=== PATIENT | female | born 1990 | race Caucasian/White ===

== ENCOUNTER 2019-11-10 07:27 | Inpatient (IN) | payer OTHER, SELFPAY ==
[2019-11-10] VITALS (41 sets, daily range): BP systolic 94–126; BP diastolic 53–80; PULSE 81–113; TEMP 35.7–37.1; O2SAT 98–100; BMI 35.4
--- NOTE | 2019-11-10 07:27 | LDADM ---
This patient, Yokasta Stringer, was admitted to Labor/Delivery/Recovery 109 on 11/10/19 at 07:27. Plans for labor, pain management and were discussed with patient. Patient/family oriented to hospital policies and general routines including ID bracelet, bed and alarms, visiting hours, pain management, procedures, bathroom and other care routines, personal items, smoking policy, room service/diet and guest tray routines, infant security routines, and visiting hours. Patient/Family are encouraged to report perceived risks to care and to ask questions if they do not understand what they are told or what they should do. See OBIX for further documentation.
[2019-11-10] MEDS: TERBUTALINE SULFATE 1 MG/ML VIAL 0.25 MG SUB-Q (08:36)
--- NOTE | 2019-11-10 08:57 | WPDOBADMIT ---
Obstetrics - Admit Note Admission Note: record reviewed. Additions to the history and/or subsequent changes in the physical findings follow. 29 y/o at 39 weeks with footling breech presentation, here for ECV. No contractions. No leakage of fluid. Rh pos. AVSS NST reactive TOCO: no contractions ABD soft, nontender, gravid, breech. Cervix closed, thick Bedside ultrasound: IUP in footling breech presentation with back to maternal left. Fundal, left-sided placenta. Procedure: After informed consent was obtained, she received terbutaline 0.25mg sc x 1. Under ultrasound guidance, the breech was elevated and the fetus rotated counterclockwise (forward somersault), effecting ECV. Cephalic presentation resulted. FHR normal throughout. A: Breech presenatation resolved. P: She is considering whether to pursue induction of labor versus expectant management. Reviewed her options in detail.
[2019-11-10 09:33] LABS: Basophils Percent Auto 0.2 % (0.2-1.2); Eosinophils Absolute Auto 0.1 K/mm3 (0-0.3); Eosinophils Percent Auto 0.9 % (0-4.4); Hematocrit 32.4 % (37.0-47.0); Hemoglobin 10.9 g/dL (12.0-15.0); Immature Granulocyte Absolute 0.05 K/mm3 (0.00-0.031); Immature Granulocyte Percent A 0.6 % (0-0.5); Lymphocytes Absolute Auto 1.62 K/mm3 (0.9-3.2); Mean Corpuscular HGB Conc 33.6 g/dl (32-36); Mean Corpuscular Hemoglobin 28.8 pg (26-34); Mean Corpuscular Volume 85.7 fl (80-100); Mean Platelet Volume 10.4 fl (7.4-10.4); Monocytes Absolute Auto 0.7 K/mm3 (0.1-0.6); Monocytes Percent Auto 8.1 % (2.6-8.5); Neutrophils Absolute Auto 6.5 K/mm3 (1.3-6.7); Neutrophils Percent Auto 72.2 % (45.5-73.1); Platelet Count Result 271 k/mm3 (150-375); Red Blood Count 3.78 M/mm3 (4.2-5.4); Red Cell Distribution Width 13.5 % (11.5-14.5)
[2019-11-10] MEDS: DINOPROSTONE 10 MG VAG INSERT VAGINAL (10:58)
--- NOTE | 2019-11-10 11:52 | PM.OBPNLAB ---
Pain Control Date/time seen: 11/10/19 11:52 Comments: Patient decided on induction of labor. Cervidil placed. Pelvic Exam Dilation (cm): 1 Effacement (%): 0 station: -3 Comments: per RN exam Contractions Monitor mode: External Status status: Category l Assessment and Plan Comments: TOCO: rare contractions A: IUP at 39 weeks, s/p ECV. P: She requests induction of labor. Reviewed risks, benefits and alternatives in detail. Cervidil has been placed.
--- NOTE | 2019-11-10 13:57 | P.PNAN_ITS ---
Anes - Eval Pre Procedure Procedure: Labor epidural Date/Time: 11/10/19 13:57 Surgeon: Kartik Morse M.D. Preop Diagnosis: pain during labor Pre Op Diagnosis: Labor Patient Data Age: 29 Gender: F Height: 1.63 m Weight: 93.5 kg Last Vital Signs Pulse 101 H 11/10/19 13:16 BP 123/64 11/10/19 13:16 Pulse Ox 100 11/10/19 10:43 Allergies Allergy/AdvReac Type Severity Reaction Status Date / Time No Known Allergies Allergy Verified 10/18/19 12:48 Home Medications Medication Instructions Recorded Confirmed Type vit no.[id number] 1 tablet PO DAILY 10/18/19 11/10/19 History [ Vitamin] Laboratory Tests 11/10/19 11/10/19 11/10/19 09:25 09:25 09:25 WBC 9.0 K/mm3 K/mm3 (4.5-10.0) RBC 3.78 M/mm3 L M/mm3 (4.2-5.4) Hgb 10.9 g/dL L g/dL (12.0-15.0) Hct 32.4 % L % (37.0-47.0) MCV 85.7 fl fl (80-100) MCH 28.8 pg pg (26-34) MCHC 33.6 g/dl g/dl (32-36) RDW 13.5 % % (11.5-14.5) Plt Count 271 k/mm3 k/mm3 (150-375) MPV 10.4 fl fl (7.4-10.4) Immature Gran % (Auto) 0.6 % H % (0-0.5) Neut % (Auto) 72.2 % % (45.5-73.1) Lymph % (Auto) 18.0 % L % (18.3-44.2) Lipscomb % (Auto) 8.1 % % (2.6-8.5) Eos % (Auto) 0.9 % % (0-4.4) Baso % (Auto) 0.2 % % (0.2-1.2) Lymph # (Auto) 1.62 K/mm3 K/mm3 (0.9-3.2) Lipscomb # (Auto) 0.7 K/mm3 H K/mm3 (0.1-0.6) Eos # (Auto) 0.1 K/mm3 K/mm3 (0-0.3) Baso # (Auto) 0.0 K/mm3 K/mm3 (0.0-0.1) Abs Immat Gran (auto) 0.05 K/mm3 H K/mm3 (0.00-0.031) Absolute Neuts (auto) 6.5 K/mm3 K/mm3 (1.3-6.7) Absolute Nucleated RBC 0.0 K/mm3 K/mm3 (0.0-0.012) Nucleated RBC % 0.0 % % (0.0-0.2) RPR Pending Blood Type O Positive Antibody Screen Negative Patient hx anesthesia problems: none Family hx anesthesia problems: none [facility] Family History Family History (Updated 10/18/19 @ 12:39 by Naty Joiner, RN) Grandparent Colon cancer Diabetes mellitus Aortic stenosis Other Neurofibromatosis Social History Social History Smoking status: Never smoker Second hand tobacco smoke exposure: No Substance use: never Gender identity (if verbalized by the patient): Female Spiritual care concerns: No Exam Day of Procedure 11/10/19 13:57
[2019-11-11] VITALS (241 sets, daily range): BP systolic 69–125; BP diastolic 36–111; PULSE 25–208; TEMP 36.1–37.9; O2SAT 82–100
[2019-11-11] MEDS: LACTATED RINGERS 1,000 ML 125 ML IV CONT ×6 (00:02→23:44)
[2019-11-11] MEDS: OXYTOCIN 30 UNITS/NS 500 ML 30 UNITS/500 ML BAG 6 UNITS IV CONT (00:03)
--- NOTE | 2019-11-11 08:40 | PM.OBPNLAB ---
Pain Control Date/time seen: 11/11/19 08:40 Comments: Feeling more contractions. Pelvic Exam Dilation (cm): 3 Effacement (%): 50 station: -2 Comments: AROM with clear fluid. Contractions Monitor mode: External Contraction pattern: Irregular Status status: Category l Assessment and Plan Comments: A: IUP at 39 1/7 weeks. P: Continue labor.
[2019-11-11 09:37] LABS: Rapid Plasma Reagin Non-Reactive (NonReactive)
--- NOTE | 2019-11-11 12:00 | PM.OBPNLAB ---
Pain Control Date/time seen: 11/11/19 12:00 Comments: Now comfortable with epidural. Pelvic Exam Dilation (cm): 4 Effacement (%): 80 station: -2 Contractions Monitor mode: External Contraction pattern: Irregular Status status: Category l Assessment and Plan Comments: Continue labor
[2019-11-11] MEDS: PHENYLEPHRINE 1,000 MCG/10 ML SYRINGE 100 MCG IV PUSH (14:05)
[2019-11-11] MEDS: ONDANSETRON INJ 4 MG/2 ML VIAL IV PUSH (16:29)
--- NOTE | 2019-11-11 16:49 | PM.OBPNLAB ---
Pain Control Date/time seen: 11/11/19 16:49 Pelvic Exam Dilation (cm): 5 Effacement (%): 80 station: -2 Contractions Monitor mode: External Contraction pattern: Irregular Status status: Category l Assessment and Plan Comments: Continue labor.
[2019-11-11] MEDS: AMPICILLIN 2 GM/NS 100 ML 2 GM/100 ML BAG IVPB (22:43)
[2019-11-12] VITALS (149 sets, daily range): BP systolic 66–212; BP diastolic 31–123; PULSE 31–250; RESP 14–19; TEMP 36.9–37.5; O2SAT 76–100
--- NOTE | 2019-11-12 02:01 | PM.OBPNLAB ---
Pain Control Date/time seen: 11/12/19 02:01 Comments: Pushing well. Pelvic Exam Dilation (cm): 10 Effacement (%): 100 station: +1 Contractions Monitor mode: External Contraction frequency: 4 Contraction pattern: Regular Status status: Category l Assessment and Plan Comments: Continue pushing
--- NOTE | 2019-11-12 04:19 | PM.IMHP ---
H&P: HPI History of Present Illness Date/Time: 11/12/19 04:19 Chief complaint: Labor Narrative: 29 y/o at 39 2/7 weeks here for induction of labor after a successful ECV. Had Cervidil, then oxytocin. Has pushed for a little over 3 hours. Attempted VAVD for poor maternal pushing effort after 2.5 hours of pushing. Kiwi vacuum cup applied to the vertex. Using the Dreifingergriff, the Kiwi was applied to the vertex and the head was gently flexed. Over 5 contractions, and with 1 pop-off, there was initially some descent of the head from +1 to the +2/5 station, but then no further descent was able to be effected. Therefore, I offered her a primary . Reviewed risks, benefits, alternatives in detail. She understands and elects to proceed. Review of Systems Review of Systems: All systems reviewed & are unremarkable except as noted in HPI and below PMFSH Past Medical History Medical History (Updated 11/12/19 @ 04:24 by Kartik Morse MD) ANTONIA I (vulvar intraepithelial neoplasia I) Family History Family History Grandparent Colon cancer Diabetes mellitus Aortic stenosis Other Neurofibromatosis Social History Social History Smoking status: Never smoker Second hand tobacco smoke exposure: No Substance use: never Gender identity (if verbalized by the patient): Female Spiritual care concerns: No Meds Home Medications and Allergies Home Medications Medication Instructions Recorded Confirmed Type vit no.[id number] 1 tablet PO DAILY 10/18/19 11/10/19 History [ Vitamin] Allergies Allergy/AdvReac Type Severity Reaction Status Date / Time No Known Allergies Allergy Verified 10/18/19 12:48 Vital Signs Vital Signs - 24 hr 11/11/19 04:31 11/11/19 05:00 11/11/19 05:31 Temperature Pulse Rate 82 86 83 Blood Pressure 105/64 113/73 105/62 Pulse Oximetry 11/11/19 06:02 11/11/19 06:03 11/11/19 06:32 Temperature Pulse Rate 86 95 95 Blood Pressure 78/53 L 109/55 L 106/69 Pulse Oximetry 11/11/19 06:43 11/11/19 07:00 11/11/19 07:36 Temperature 36.6 C Pulse Rate 78 91 Blood Pressure 111/69 102/63 Pulse Oximetry 11/11/19 08:14 11/11/19 08:38 11/11/19 08:41 Temperature 36.7 C Pulse Rate 95 103 H Blood Pressure 114/75 122/56 L Pulse Oximetry 11/11/19 09:01 11/11/19 09:02 11/11/19 09:32 Temperature 36.6 C Pulse Rate 185 H 108 H Blood Pressure 125/111 H 122/79 Pulse Oximetry 11/11/19 09:34 11/11/19 10:05 11/11/19 10:53 Temperature Pulse Rate 110 H 113 H Blood Pressure 118/75 121/69 Pulse Oximetry 84 L 11/11/19 10:55 11/11/19 10:58 11/11/19 11:00 Temperature Pulse Rate 105 H 103 H Blood Pressure 102/62 104/73 Pulse Oximetry 100 11/11/19 11:02 11/11/19 11:03 11/11/19 11:05 Temperature Pulse Rate 97 112 H 135 H Blood Pressure 108/85 107/84 113/81 Pulse Oximetry 11/11/19 11:06 11/11/19 11:08 11/11/19 11:09 Temperature Pulse Rate 96 94 Blood Pressure 124/76 116/60 Pulse Oximetry 11/11/19 11:10 11/11/19 11:13 11/11/19 11:15 Temperature Pulse Rate 93 92 92 Blood Pressure 119/75 111/71 121/70 Pulse Oximetry 11/11/19 11:16 11/11/19 11:18 11/11/19 11:19 Temperature Pulse Rate 88 89 Blood Pressure 118/68 111/70 Pulse Oximetry 11/11/19 11:20 11/11/19 11:22 11/11/19 11:23 Temperature Pulse Rate 85 94 Blood Pressure 112/73 119/77 Pulse Oximetry 11/11/19 11:28 11/11/19 11:29 11/11/19 11:30 Temperature Pulse Rate 86 78 85 Blood Pressure 107/61 102/66 104/68 Pulse Oximetry 100 11/11/19 11:31 11/11/19 11:33 11/11/19 11:35 Temperature 36.6 C Pulse Rate 79 79 Blood Pressure 111/69 117/68 Pulse Oximetry 100 11/11/19 11:37 11/11/19 11:38 11/11/19 11:39 Te
--- NOTE | 2019-11-12 04:30 | WPDANESEFPP ---
Anes - Eval Final PreProcedure Day of Procedure 11/12/19 04:30 Patient weight: overweight Neurological: alert and oriented ASA classification: II Emergent: no Anesthetic plan: proceed Anesthesia type and monitoring: regional epidural and standard monitoring Other findings: use existing epid for c/s Informed Consent: The patient's anesthetic plan and its attendant risks and benefits were discussed with the patient/family/POA. Questions were solicited and answers provided to the satisfaction of the patient/family/POA.
--- NOTE | 2019-11-12 05:34 | PM.OBPRVD ---
OB - Delivery Note Procedure Procedure: Procedures Operation Date: 11/10/19 10:30 <No data on this case meets the specified criteria> Operation Date: 11/12/19 04:45 <No data on this case meets the specified criteria> External cephalic version Induction of labor Attempted vacuum assisted vaginal delivery Primary low transverse delivery Delivery monitor: external FHT, external uterine and internal uterine Route of delivery: Estimated blood loss (mL): 895 Anesthesia type: Epidural Disposition: PACU Complications: None Narrative: The patient was taken to the operating room where she was prepared and draped in the usual sterile fashion in dorsal supine position with a leftward tilt. She received cefazolin preoperatively. Spinal anesthesia was found to be adequate. A Pfannenstiel skin incision was made and carried through to the underlying layer of the fascia. The fascia was incised in the midline and the incision was extended laterally. The fascia was dissected free of the underlying rectus muscles. The rectus muscles were in the midline. The peritoneum was identified, tented up and entered sharply. The peritoneal incision was extended superiorly and inferiorly with good visualization of the bladder. The bladder blade was placed. The vesicouterine peritoneum was identified, tented up and entered sharply. The incision was extended laterally and the bladder flap was developed. The bladder blade was replaced. The uterus was then incised sharply in a transverse fashion along the lower uterine segment. The incision was extended laterally. The infant's head was delivered atraumatically to the sterile field, followed by the body. The nose and mouth were bulb suctioned. After a delay, the cord was clamped and cut. The infant was handed off the field. Cord blood was collected. The placenta was removed manually and was passed off the field. The uterus was exteriorized and cleared of all clots and debris. The uterine incision was reapproximated using 0 Monocryl in a running, locked fashion. A second imbricating layer of the same suture was placed. Excellent hemostasis resulted as did excellent reapproximation of the normal anatomy. The uterus was returned the abdomen. The pelvis was irrigated copiously with warmed normal saline. Rigorous hemostasis was assured. The fascial layer was reapproximated using 0 Vicryl in a running fashion. The skin was closed with a running, subcuticular stitch of 4 0 Vicryl. Dermaflex was applied externally. Sponge, lap, needle and instrument counts were correct. The patient was taken to the recovery room in stable condition. The went to the nursery in stable condition. I was present and scrubbed the entire procedure. Baby Date of : 11/12/19 Time of : 04:58 Weeks of gestation at delivery: 39 Infant gender: Male Weight (pounds): 7 Weight (ounces): 4 presentation: vertex Placenta delivery description: Manual Removal and Normal Configuration cord vessel description: 3 Vessels score one minute: 7 score five minutes: 9
--- NOTE | 2019-11-12 05:37 | PM.OBDSVD ---
DS: Admitting Diagnosis Admitting Diagnosis Admitting Diagnosis: Breech presentation DS: Discharge Diagnosis Discharge Diagnosis (1) delivery delivered: Code(s): O82 - Encounter for delivery without indication Status: Acute (2) Arrest of descent, delivered, current hospitalization: Code(s): O62.1 - Secondary uterine inertia Status: Acute OB - DS: Summary OB Procedures : NST, Ultrasound and External version OB Procedures Intrapartum: OB Procedures: : None Peripartum Data Procedures: Procedures Operation Date: 11/10/19 10:30 <No data on this case meets the specified criteria> Operation Date: 11/12/19 04:45 <No data on this case meets the specified criteria> External cephalic version Induction of labor Attempted vacuum assisted vaginal delivery Primary low transverse delivery DS: Data Data Completed and Pending Labs on day of discharge: Labs from last 24 hours 11/10/19 09:25 RPR Non-reactive Discharge Plan Discharge Attending physician on discharge: Kartik Morse Discharging Clinician: Kartik Morse Patient Disposition: Home, Self-Care Activity: may shower, may drive after 2 weeks and pelvic rest Diet: regular Wound Care Instructions: incision open to air Discharge Instructions: Call or return if temperature above 100.4? F, increased abdominal pain, increased vaginal bleeding or any new problems. Education: Mom and Baby Guide and Preeclampsia Handout Given to: Mother Follow-Up: Call your delivering provider's office for an appointment to be seen in: 4 Weeks Mom and baby should come to the [facility] for the follow-up appointment. Appointment Date/Time: November 16, 2019 at 11:00 am What to expect at your follow-up visit: Physical Assessment Call [phone] if you are unable to keep your appointment time. BREAST CARE: * Wear a snug supportive bra. * For engorgement discomfort: Breast Feeding: * Apply warm moist washcloths * Express milk as needed to relieve engorgement * Wear loose clothing * For sore nipples: * Identify correct latch-on * Apply warm moist washcloths before and after nursing * Air dry nipples after nursing * May apply Lansinoh cream to nipples ABDOMINAL INCISION: (if applicable) * Allow incision to air dry * Do NOT use lotions for powders on your incision * When showering, allow soap and water to run over the incision, but do not wash incision EPISIOTOMY/PERINEAL CARE: * Until bleeding stops, use your rey bottle after urinating * Change your pad frequently throughout the day * No tub baths until seen by your physician - You may shower ACTIVITY: * Rest as much as possible. * Do not exercise or lift anything heavier than your baby (such as laundry or other children.) * Avoid stairs or driving as much as possible. * Do not put anything into the vagina. No douching, tampons, or sexual activity until seen by physician. NOTIFY PHYSICIAN IF YOU HAVE ANY QUESTIONS OR IF ANY OF THE FOLLOWING SYMPTOMS OCCUR: * If your incision becomes red, swollen, or more painful than what you have experienced in the hospital. * If your vaginal bleeding becomes foul smelling. * If your vaginal bleeding becomes more heavy than a period or if your bleeding changes from pink to bright red. However, you may pass an occasional walnut-sized clot once or twice for the first week . * If you experience a sharp, shooting pain in you calves. * If you discover a hard, reddened area on your breast or if you experience flu-like symptoms. DIET: * Eat regular, well-balanced meals. * Drink plenty of fluids daily. If , drink to thirst. Stand Alone Forms: General Discharge Information Follow-up/Referrals: Kartik Morse MD [Physician] - 4 Weeks (4
[2019-11-12] MEDS: OXYTOCIN 30 UNITS/NS 500 ML 30 UNITS/500 ML BAG 125 UNITS IV CONT (06:05)
[2019-11-12] MEDS: LACTATED RINGERS 1,000 ML 125 ML IV CONT (06:05)
[2019-11-12] MEDS: KETOROLAC 30 MG/ML VIAL (*BKC) IV PUSH ×2 (08:47→15:55)
[2019-11-12] MEDS: DEXTROSE 5%/0.45% SOD CHL 1,000 ML 125 ML IV CONT (10:13)
--- NOTE | 2019-11-12 15:15 | PC.NURSE ---
Consulted with patient, mother reports infant has eagerly latched for the first several feedings. Mother states she has requested assist with latching each feeding. Advised mother she may attempt on her own or call for assist as she wishes. Reviewed feeding cues, frequencies, duration of feedings, feeding elimination flow sheet, and signs of adequate intake. Demonstrated stimulation techniques to wake for feeding. Assisted with to breast. Reviewed positioning/alignment in cross cradle, holding breast in U hold and guided asymmetrical latch on. Reviewed rational for each. was able to latch correctly. nursed eagerly, with steady draws and frequent swallowing noted. Reviewed signs of a correct latch, effective nursing and suck swallow ratio. was able to maintain latch without discomfort to mother. Nipple care reviewed. Suggested mother stimulate to keep awake and nursing effectively for increased intake and to assist with maintaining deep latch. Demonstrated how to adjust latch while feeding. Instructed mother to call out for RN assistance if she is unable to latch infant for feeding or she has discomfort with nursing. Instructed feeding should be initiated three hours from start of last feeding or if feeding cues are noted before. Mother voiced understanding of information shared.
[2019-11-12] MEDS: IBUPROFEN 600 MG TABLET PO (23:17)
[2019-11-13 00:50] VITALS: BP 96/56; PULSE 96; RESP 14; TEMP 36.8; O2SAT 96
[2019-11-13 05:25] VITALS: BP 103/63; PULSE 94; RESP 15; TEMP 36.5; O2SAT 98
[2019-11-13] MEDS: ACETAMINOPHEN 325 MG TABLET 650 MG PO (05:33)
[2019-11-13] MEDS: IBUPROFEN 600 MG TABLET PO (05:33)
[2019-11-13 06:08] LABS: Basophils Percent Auto 0.3 % (0.2-1.2); Eosinophils Absolute Auto 0.1 K/mm3 (0-0.3); Eosinophils Percent Auto 0.7 % (0-4.4); Hematocrit 26.6 % (37.0-47.0); Hemoglobin 8.7 g/dL (12.0-15.0); Immature Granulocyte Absolute 0.13 K/mm3 (0.00-0.031); Immature Granulocyte Percent A 0.8 % (0-0.5); Lymphocytes Absolute Auto 1.64 K/mm3 (0.9-3.2); Lymphocytes Percent Auto 10.5 % (18.3-44.2); Mean Corpuscular HGB Conc 32.7 g/dl (32-36); Mean Corpuscular Hemoglobin 28.6 pg (26-34); Mean Corpuscular Volume 87.5 fl (80-100); Mean Platelet Volume 10.3 fl (7.4-10.4); Monocytes Percent Auto 6.1 % (2.6-8.5); Neutrophils Absolute Auto 12.8 K/mm3 (1.3-6.7); Neutrophils Percent Auto 81.6 % (45.5-73.1); Platelet Count Result 228 k/mm3 (150-375); Red Blood Count 3.04 M/mm3 (4.2-5.4); Red Cell Distribution Width 14.1 % (11.5-14.5); White Blood Count 15.6 K/mm3 (4.5-10.0)
--- NOTE | 2019-11-13 08:30 | PM.OBPNVD ---
OB - PN: Subj Subjective Date/time seen: 11/13/19 08:30 Narrative: Pain OK. Tolerating diet. Plans circumcision for son. He is being followed for a scalp hematoma. If he requires transfer to [facility], she would like to be discharged. OB - PN: Obj Data Labs CBC & Chem 7: 11/13/19 05:39 Labs: Laboratory Results - last 24 hr 11/13/19 05:39 WBC 15.6 H RBC 3.04 L Hgb 8.7 L Hct 26.6 L MCV 87.5 MCH 28.6 MCHC 32.7 RDW 14.1 Plt Count 228 MPV 10.3 Immature Gran % (Auto) 0.8 H Neut % (Auto) 81.6 H Lymph % (Auto) 10.5 L Foard % (Auto) 6.1 Eos % (Auto) 0.7 Baso % (Auto) 0.3 Lymph # (Auto) 1.64 Foard # (Auto) 1.0 H Eos # (Auto) 0.1 Baso # (Auto) 0.0 Abs Immat Gran (auto) 0.13 H Absolute Neuts (auto) 12.8 H Absolute Nucleated RBC 0.0 Nucleated RBC % 0.0 OB - PN A/P Plan Comments: A: POD#1, doing well. P: Routine care. Reviewed circ. Reviewed discharge planning. Exam Narrative: Exam Narrative: AVSS I/O OK ABD soft, nontender, fundus firm. Incision c/d/i. EXT nontender
[2019-11-13 09:55] VITALS: BP 123/68; PULSE 124; RESP 18; TEMP 36.6
--- NOTE | 2019-11-13 10:49 | WPDANLDNPN2 ---
Anes-Prog Note L&D-Neuraxial Date/Time: 11/13/19 10:49 Neuraxial medications: epidural PF morphine Patient feedback: Patient satisfied with post-operative pain management.
--- NOTE | 2019-11-13 10:50 | WPDANLDPN2 ---
Anes-Prog Note L&D Date/Time: 11/13/19 10:50 Comfortable throughout: section Neuraxial method: epidural Epidural/Spinal procedure site: clean & non-tender Neuro status: Neuro function grossly intact. Cardiovascular status: normal Respiratory status: normal Airway patency: baseline Mental status: baseline Post-Op hydration status: normal Vital Signs: Last Vital Signs Temp 36.5 C 11/13/19 05:25 Pulse 94 11/13/19 05:25 Resp 15 11/13/19 05:25 BP 103/63 11/13/19 05:25 Pulse Ox 98 11/13/19 05:25 Pain score (VAS): 0/0 I/O: Intake & Output 11/12/19 11/13/19 11/13/19 23:59 07:59 15:59 Intake Total 500 Output Total 1200 Balance -700 Post-procedural complaints: none Patient feedback: Patient satisfied with anesthetic care.
[2019-11-13] MEDS: MULTIVIT/MIN/PREN/FOL AC/IRON TABLET 1 TAB PO (11:14)
[2019-11-13] MEDS: DOCUSATE SODIUM 100 MG CAPSULE PO (11:14)
[2019-11-13] MEDS: POLYSACCHARIDE IRON COMPLEX 150 MG CAPSULE PO (11:14)
--- NOTE | 2019-11-13 11:27 | PC.NURSE ---
Patient instructed on viewing the discharge video Mother & Baby Care, The First Two Weeks online. Patient was given the opportunity and encouraged to ask questions. Patient verbalized understanding of information shared and has been given the mother/baby guide for home reference.
== END 2019-11-13 11:27 | disposition home or self-care (01) | DRG 788 ==
LOC: ANHLDR 11-12 05:38 → ANHOB2 11-12 09:17
PROVIDERS: Admitting Provider Obstetrics & Gynecology; Visit Provider Obstetrics & Gynecology
PROC: 10D00Z1 Extraction of Products of Conception, Low, Open Approach (ICD-10-PCS; CPT 59514; principal; 2019-11-12 04:45)
DX: O62.1 Secondary uterine inertia (principal); O32.8XX0 Maternal care for other malpresentation of fetus, not applicable or unspecified; O66.5 Attempted application of vacuum extractor and forceps; Z3A.39 39 weeks gestation of pregnancy; Z37.0 Single live birth; O76 Abnormality in fetal heart rate and rhythm complicating labor and delivery; Z23 Encounter for immunization
CPT/HCPCS: 36415; 85025; 86592; 86850; 86900; 86901; 90471; 90686; A9270; G0008; J0131; J0290; J1885; J2274; J2370; J2405; J2590; J2795; J3105; J7120

== ENCOUNTER → 2020-02-09 13:03 | Outpatient (CLI) | payer OTHER, SELFPAY ==
--- NOTE | ~2020-02-09 | XR_ITS ---
EXAMINATION: XR wrist LT 2V EXAM DATE: 02/09/2020 13:31 INDICATION: Progressing pain in the wrists bilaterally, stiffness in joints. Being worked up for poss ible rheumatoid arthritis. TECHNIQUE: Frontal and lateral projections of the left wrist. Correlation is made to contralateral w rist same date. FINDINGS: There are no bony erosions identified. There are no acute fractures or dislocations identi fied. There is no subcutaneous gas. The soft tissue is unremarkable. There are no radiopaque fore ign bodies. The joint spaces are uniform. IMPRESSION: 1. Unremarkable XR wrist LT 2V exam. Reviewed, dictated and finalized at location B. ULTING ENGINEER
--- NOTE | ~2020-02-09 | XR_ITS ---
EXAMINATION: XR wrist RT 2V EXAM DATE: 02/09/2020 13:31 INDICATION: Bilateral wrist pain. TECHNIQUE: Frontal and lateral projections of the right wrist. There is no prior study for comparis on. FINDINGS: There are no bony erosions identified. There are no acute right wrist fractures or disloca tions identified. There is no subcutaneous gas. The soft tissue is unremarkable. There are no rad iopaque foreign bodies. Joint spaces are uniform. IMPRESSION: 1. Unremarkable right wrist exam. Reviewed, dictated and finalized at location B. T METAL SUPERVISOR
== END ==
PROVIDERS: PCP Physician Assistant; Visit Provider Physician Assistant
DX: M25.50 Pain in unspecified joint (principal)
CPT/HCPCS: 73100

== ENCOUNTER → 2020-06-06 10:07 | Outpatient (CLI) | payer OTHER, SELFPAY ==
--- NOTE | ~2020-06-06 | US_ITS ---
EXAMINATION: US thyroid DATE: 06/06/2020 10:36 INDICATION: Hypothyroidism, unspecified. TECHNIQUE: Multiple ultrasound images of the thyroid were obtained. COMPARISON: None. FINDINGS: The right thyroid lobe measures 6.2 x 2.0 x 1.9 cm. The left thyroid lobe measures 5.1 x 1.6 x 1.6 c m. The thyroid demonstrates coarsened echotexture and diffuse hypoechogenicity. Vascularity is joby l. In the left thyroid lobe, there is a 1.5 cm solid, hypoechoic, [id number]-vzax-[id number] nodule with ill-def ined margin without echogenic foci (TI-RADS TR4). In the right thyroid lobe, there is a 1.8 cm solid, hypoechoic, gvhdm-eyvg-[id number] nodule with smooth margin without echogenic foci (TR4). IMPRESSION: 1. Two thyroid nodules. Ultrasound-guided fine-needle aspiration of both nodules is recommended. Reviewed, dictated and finalized at location B. IMPRESSION: 1. Two thyroid nodules. Ultrasound-guided fine-needle aspiration of both nodule s is recommended.
== END ==
PROVIDERS: Visit Provider Internal Medicine Endocrinology, Diabetes & Metabolism
DX: E03.9 Hypothyroidism, unspecified (principal); E04.2 Nontoxic multinodular goiter
CPT/HCPCS: 76536

== ENCOUNTER 2020-06-22 13:10 | Outpatient (CLI) | payer OTHER, SELFPAY ==
--- NOTE | ~2020-06-22 | US_ITS ---
EXAMINATION: US FNA w image guidance, US FNA additional DATE: 06/22/2020 14:32 INDICATION: Nontoxic multinodular goiter TECHNIQUE: A time-out was performed to verify the patient's name, date of , and procedure to be performed . The procedure and its benefits and risks were discussed with the patient. Risks specifically discus sed included bleeding and infection. The patient understood the risks and agreed to proceed. The righ t neck was prepped and draped in the usual sterile manner. 3 mL 1% lidocaine was used for local anes thesia. 6 passes were made with a 25G needle into the lesion. Appropriate needle location was docum ented with continuous sonographic guidance. Attention was then turned to the left neck which was agai n prepped and draped in usual sterile manner. An additional 3 mm 1% lidocaine was used for local anes thesia. 6 passes were made with a 25G needle into the lesion. Appropriate needle location was documen pamela with continuous sonographic guidance. Sterile bandages were applied. There were no immediate com plications. FINDINGS: Grayscale ultrasound images demonstrate biopsy needles advanced into a 1.9 cm solid TI RADS 4 nodule at the inferior right thyroid lobe. Subsequent images demonstrate biopsy needle advanced into the les s well-defined 1.6 cm hypoechoic TI RADS 4 nodule in the deep mid left thyroid. IMPRESSION: 1. Successful ultrasound-guided fine needle aspiration of the 1.9 cm right and 1.6 cm left TI RADS 4 thyroid nodules of concern. Reviewed, dictated and finalized at location A. IMPRESSION: 1. Successful ultrasound-guided fine needle aspiration of the 1.9 cm right and 1.6 cm left TI RADS 4 thyroid nodules of concern.
== END 2020-06-22 13:11 | disposition home or self-care (01) ==
PROVIDERS: PCP Family Medicine; Visit Provider Internal Medicine Endocrinology, Diabetes & Metabolism
DX: E04.2 Nontoxic multinodular goiter (principal)
CPT/HCPCS: 10005; 10006; 88173; 88305

== ENCOUNTER 2020-07-10 12:12 | Outpatient (CLI) | payer OTHER, SELFPAY ==
[2020-07-10 13:12] LABS: Thyroid Stimulating Hormone 0.581 uIU/mL (0.465-4.680); Total Triiodothyronine (T3) 1.21 NG/ML (0.97-1.69)
[2020-07-10 13:30] LABS: Free T4 Free Thyroxine 1.07 ng/mL (0.78-2.19)
== END 2020-07-10 12:13 | disposition home or self-care (01) ==
PROVIDERS: PCP Family Medicine; Visit Provider Internal Medicine Endocrinology, Diabetes & Metabolism
DX: E03.9 Hypothyroidism, unspecified (principal)
CPT/HCPCS: 36415; 84439; 84443; 84480

== ENCOUNTER → 2020-07-10 12:31 | Outpatient (CLI) | payer OTHER, SELFPAY ==
--- NOTE | ~2020-07-10 | XR_ITS ---
XR thoracic spine 2V 07/10/2020 13:03 Indication: Thoracic back pain Procedure: 4 views thoracic spine Comparison: No prior studies for comparison. Findings: No fracture, subluxation or dislocation. Pedicles are intact. Surrounding osseous structure s within normal limits. No evidence for listhesis. No paraspinal soft tissue abnormality. Impression: 1: No significant abnormality of the thoracic spine. Reviewed, dictated and finalized at location A. Impression: 1: No significant abnormality of the thoracic spine.
== END ==
PROVIDERS: Visit Provider Chiropractor
DX: M54.6 Pain in thoracic spine (principal)
CPT/HCPCS: 72070

== ENCOUNTER 2020-08-09 11:43 | Outpatient (CLI) | payer OTHER, SELFPAY ==
[2020-08-09 12:56] LABS: Total Triiodothyronine (T3) 1.06 NG/ML (0.97-1.69)
== END 2020-08-09 11:44 | disposition home or self-care (01) ==
LOC: ANHLAB 11:46
PROVIDERS: Visit Provider Internal Medicine Endocrinology, Diabetes & Metabolism
DX: E03.9 Hypothyroidism, unspecified (principal)
CPT/HCPCS: 36415; 84439; 84443; 84480

== ENCOUNTER 2020-09-08 17:03 | Outpatient (CLI) | payer OTHER, SELFPAY ==
[2020-09-08 18:00] LABS: Thyroid Stimulating Hormone 0.891 uIU/mL (0.465-4.680); Total Triiodothyronine (T3) 1.09 NG/ML (0.97-1.69)
[2020-09-08 18:02] LABS: Free T4 Free Thyroxine 0.96 ng/mL (0.78-2.19)
== END 2020-09-08 17:04 | disposition home or self-care (01) ==
PROVIDERS: PCP Family Medicine; Visit Provider Internal Medicine Endocrinology, Diabetes & Metabolism
DX: E03.9 Hypothyroidism, unspecified (principal)
CPT/HCPCS: 36415; 84439; 84443; 84480

== ENCOUNTER 2020-10-09 15:20 | Outpatient (CLI) | payer OTHER, SELFPAY ==
[2020-10-09 17:11] LABS: Free T4 Free Thyroxine 0.83 ng/mL (0.78-2.19)
[2020-10-09 17:26] LABS: Total Triiodothyronine (T3) 1.21 NG/ML (0.97-1.69)
== END 2020-10-09 15:21 | disposition home or self-care (01) ==
PROVIDERS: PCP Family Medicine; Visit Provider Internal Medicine Endocrinology, Diabetes & Metabolism
DX: E03.9 Hypothyroidism, unspecified (principal)
CPT/HCPCS: 36415; 84439; 84443; 84480

== ENCOUNTER 2020-12-14 11:34 | Outpatient (CLI) | payer OTHER, SELFPAY ==
[2020-12-14 13:15] LABS: Free T4 Free Thyroxine 0.98 ng/mL (0.78-2.19)
[2020-12-14 13:24] LABS: Total Triiodothyronine (T3) 1.37 NG/ML (0.97-1.69)
== END 2020-12-14 11:35 | disposition home or self-care (01) ==
LOC: ANHLAB 11:36
PROVIDERS: PCP Internal Medicine; Visit Provider Internal Medicine Endocrinology, Diabetes & Metabolism
DX: E03.9 Hypothyroidism, unspecified (principal); E04.2 Nontoxic multinodular goiter
CPT/HCPCS: 36415; 84439; 84443; 84480

== ENCOUNTER 2020-12-27 03:08 | Day surgery (SDC) | payer OTHER, SELFPAY ==
[2020-11-17 13:58] VITALS: BMI 34.0
--- NOTE | 2020-12-26 13:03 | PM.HPGS ---
History of Present Illness History of Present Illness Consent: Risks, benefits, and alternatives have been discussed and questions answered. Patient agrees to proceed with procedure. Chief complaint: GERD Narrative: Yokasta Stringer is a 30 year old female With gastroesophageal reflux symptoms . At times she will regurgitate food that she has just eaten. She suffers from heartburn for a while is taking omeprazole. She also uses Tums and Rolaids. At time she has a pain in the epigastric area and sub xiphoid area that will last for hours. At times it is a 10/10 pain. She was thought in the past to possibly have gastric ulcers because of the intensity of the pain. While she was last year her symptoms had subsided for a while Review of Systems Review of Systems: All systems reviewed & are unremarkable except as noted in HPI and below PMFSH Past Medical History Medical History Arthritis GERD (gastroesophageal reflux disease) H/O thyroid disease Stomach ulcer ANTONIA I (vulvar intraepithelial neoplasia I) Surgical History Surgical History Delivery by section Family History Family History Grandparent Colon cancer Diabetes mellitus Aortic stenosis Hypertension Heart disease Other Neurofibromatosis Grandparent , age 42 Colon cancer Grandparent Carcinoma of colon Mother Depression Father Depression Sibling Depression Sibling Depression Scanlon esophagus Social History Social History Smoking status: Never smoker Second hand tobacco smoke exposure: No Alcohol intake: current Drinks per week: 3 Substance use: never Substance use type: does not use Living arrangements: with family Additional living arrangements comments: - tenisha - has 1 child (son) Additional occupation/education comments: stay at home mother Gender identity (if verbalized by the patient): Female Spiritual care concerns: No Meds Home Medications and Allergies Home Medications Medication Instructions Recorded Confirmed Type Vitamin 1 tablet PO DAILY 10/18/19 12/27/20 History ibuprofen 600 mg PO Q6H PRN #30 tablet 11/13/19 12/27/20 Rx Allergies Allergy/AdvReac Type Severity Reaction Status Date / Time No Known Allergies Allergy Verified 12/27/20 07:39 Exam Const: General: alert Orientation/consciousness: patient oriented x3 Resp: Auscultation: clear to auscultation bilaterally Cardio: Rhythm: regular rhythm GI: GI Palp: Yes Soft to palpation and No Tenderness to palpation present (GI) Neuro: General: patient oriented x3 Assessment and Plan Assessment and plan (1) GERD (gastroesophageal reflux disease): Qualifiers: Esophagitis presence: without esophagitis Qualified Code(s): K21.9 - Gastro-esophageal reflux disease without esophagitis Code(s): K21.9 - Gastro-esophageal reflux disease without esophagitis Status: Acute Assessment and Plan: EGD with possible biopsy or dilatation or cautery.
[2020-12-27 07:41] VITALS: BP 126/75; PULSE 88; RESP 17; TEMP 35.8; O2SAT 100; BMI 33.2
[2020-12-27] MEDS: LACTATED RINGERS 1,000 ML 150 ML IV CONT (07:44)
--- NOTE | 2020-12-27 08:23 | WPDANESEPPF ---
Anes - Initial Pre Proc Eval Procedure: Operation Date: 12/27/20 09:00 Proposed Procedures p Esophagogastroduodenoscopy - King Mcnulty MD Date/Time: 12/27/20 08:23 Surgeon: King Mcnulty MD Pre Op Diagnosis: GERD Patient Data Age: 30 Gender: F Height: 1.63 m Weight: 87.7 kg Last Vital Signs Temp 35.8 C L 12/27/20 07:41 Pulse 88 12/27/20 07:41 Resp 17 12/27/20 07:41 BP 126/75 12/27/20 07:41 Pulse Ox 100 12/27/20 07:41 Allergies Allergy/AdvReac Type Severity Reaction Status Date / Time No Known Allergies Allergy Verified 12/27/20 07:39 Home Medications Medication Instructions Recorded Confirmed Type Vitamin 1 tablet PO DAILY 10/18/19 12/27/20 History ibuprofen 600 mg PO Q6H PRN #30 tablet 11/13/19 12/27/20 Rx Patient hx anesthesia problems: none Family hx anesthesia problems: none Results Review: All pre-operative results and documents have been reviewed as part of the pre-operative evaluation. [facility] Past Medical History Medical History (Updated 06/06/20 @ 15:38 by Wilma ThomasMD) Arthritis GERD (gastroesophageal reflux disease) H/O thyroid disease Stomach ulcer ANTONIA I (vulvar intraepithelial neoplasia I) Surgical History Surgical History (Updated 05/05/20 @ 14:50 by Sherry Miranda) Delivery by section Family History Family History (Updated 02/09/20 @ 13:01 by Keturah Munoz [facility]) Grandparent Colon cancer Diabetes mellitus Aortic stenosis Hypertension Heart disease Other Neurofibromatosis Grandparent , age 42 Colon cancer Grandparent Carcinoma of colon Mother Depression Father Depression Sibling Depression Sibling Depression Scanlon esophagus Social History Social History (Updated 05/08/20 @ 09:37 by Leora Merida [facility]) Smoking status: Never smoker Second hand tobacco smoke exposure: No Alcohol intake: current Drinks per week: 3 Substance use: never Substance use type: does not use Living arrangements: with family Additional living arrangements comments: - tenisha - has 1 child (son) Additional occupation/education comments: stay at home mother Gender identity (if verbalized by the patient): Female Spiritual care concerns: No Anes - Eval Final PreProcedure Day of Procedure 12/27/20 08:23 Patient weight: overweight Heart: regular rate and rhythm Lungs: clear to auscultation and normal air movement Airway: Mallampati scale class II Neurological: alert and oriented Last oral intake: >/= 8 hours ASA classification: II Emergent: no Anesthetic plan: proceed Anesthesia type and monitoring: general GIVS Results Review: All pre-operative results and documents have been reviewed as part of the pre-operative evaluation. Informed Consent: The patient's anesthetic plan and its attendant risks and benefits were discussed with the patient/family/POA. Questions were solicited and answers provided to the satisfaction of the patient/family/POA.
[2020-12-27 09:14] VITALS: BP 101/78; PULSE 85; RESP 20; O2SAT 100
[2020-12-27 09:24] VITALS: BP 112/68; PULSE 79; RESP 18; O2SAT 100
[2020-12-27 09:34] VITALS: BP 114/69; PULSE 85; RESP 20; O2SAT 100
== END 2020-12-27 09:40 | disposition home or self-care (01) ==
PROVIDERS: PCP Internal Medicine; Visit Provider Internal Medicine Gastroenterology
PROC: 0DJ08ZZ Inspection of Upper Intestinal Tract, Via Natural or Artificial Opening Endoscopic (ICD-10-PCS; CPT 43235; principal; 2020-12-27 09:00)
DX: K21.9 Gastro-esophageal reflux disease without esophagitis (principal)
CPT/HCPCS: 43239; 87081; 88305; J2704; J7120

== ENCOUNTER 2021-01-19 07:51 | Outpatient (CLI) | payer OTHER, SELFPAY ==
--- NOTE | ~2021-01-19 | US_ITS ---
US abdomen complete EXAMINATION: US Abdomen Complete INDICATION: Intermittent abdominal pain PROCEDURE: Realtime High Resolution abdomen ultrasound. COMPARISON: No prior studies for comparison FINDINGS: Gallbladder within normal limits. No gallstones, pericholecystic fluid, gallbladder wall t hickening or biliary dilatation. Common bile duct measures 5.5 mm. Liver echotexture within normal limits without focal mass. Pancreas within normal limits. Pancreati c tail is obscured by bowel gas. Spleen is unremarkeable. Renal echotexture is within normal limits bilaterally without hydronephrosis, contour deforming mass or renal stone. Right kidney measures 10.3 cm. Left kidney measures 10.6 cm. Visualized aspects of the aorta and IVC are within normal limits. Portal vein is patent. No sonograph ic Curiel's sign indicated by the technologist. IMPRESSION: 1: Normal abdominal ultrasound. Reviewed, dictated and finalized at location A. [employer]
== END 2021-01-19 07:52 | disposition home or self-care (01) ==
PROVIDERS: PCP Internal Medicine; Visit Provider Internal Medicine Gastroenterology
DX: R10.9 Unspecified abdominal pain (principal)
CPT/HCPCS: 76700

== ENCOUNTER 2021-12-12 14:06 | Outpatient (CLI) | payer OTHER, SELFPAY ==
[2021-12-12 14:33] LABS: Hematocrit 30.4 % (37.0-47.0); Hemoglobin 10.3 g/dL (12.0-15.0); Mean Corpuscular HGB Conc 33.9 g/dl (32-36); Mean Corpuscular Volume 82.6 fl (80-100); Mean Platelet Volume 9.5 fl (7.4-10.4); Platelet Count Result 267 k/mm3 (150-375); Red Blood Count 3.68 M/mm3 (4.2-5.4); Red Cell Distribution Width 13.2 % (11.5-14.5); White Blood Count 9.9 K/mm3 (4.5-10.0)
[2021-12-13 17:25] LABS: Rapid Plasma Reagin Non-Reactive (NonReactive)
== END 2021-12-12 14:07 | disposition home or self-care (01) ==
LOC: ANHLAB 14:08
PROVIDERS: PCP Internal Medicine; Visit Provider Obstetrics & Gynecology
DX: Z34.93 Encounter for supervision of normal pregnancy, unspecified, third trimester (principal); Z3A.00 Weeks of gestation of pregnancy not specified
CPT/HCPCS: 36415; 85027; 86592; 86850; 86900; 86901

== ENCOUNTER 2021-12-13 09:57 | Inpatient (IN) | payer OTHER, SELFPAY ==
--- NOTE | 2021-12-04 13:06 | PC.NURSE ---
Verified with OR schedule and patient--C/S on 12/13/21 at 1200
--- NOTE | 2021-12-12 16:27 | WPDANESEPPF ---
Anes - Initial Pre Proc Eval Procedure: Operation Date: 12/13/21 12:00 Proposed Procedures p Repeat Section - Kartik Morse MD Date/Time: 12/12/21 16:27 Surgeon: Kartik Morse MD Pre Op Diagnosis: c/s Patient Data Age: 31 Gender: F Height: Weight: Allergies Allergy/AdvReac Type Severity Reaction Status Date / Time No Known Allergies Allergy Verified 12/04/21 12:37 Home Medications Medication Instructions Recorded Confirmed Type vits no.124-ferrous fum 1 tablet PO DAILY 10/18/19 12/13/21 History 27 mg iron-folic acid 800 mcg tablet ( Vitamin) Patient hx anesthesia problems: none Family hx anesthesia problems: none Results Review: All pre-operative results and documents have been reviewed as part of the pre-operative evaluation. [facility] Past Medical History Medical History Arthritis GERD (gastroesophageal reflux disease) H/O thyroid disease Stomach ulcer ANTONIA I (vulvar intraepithelial neoplasia I) Surgical History Surgical History Delivery by section Family History Family History Grandparent Colon cancer Diabetes mellitus Aortic stenosis Hypertension Heart disease Other Neurofibromatosis Grandparent , age 42 Colon cancer Grandparent Carcinoma of colon Mother Depression Father Depression Sibling Depression Sibling Depression Scanlon esophagus Social History Social History Smoking status: Never smoker Second hand tobacco smoke exposure: No Alcohol intake: current Drinks per week: 3 Substance use: never Substance use type: does not use Has the Lack of Transportation Kept You From Medical Appointments or From Getting Medications?: No Within the Past 12 Months, Were You Worried Whether Your Food Would Run Out Before You Got Money to Buy More?: Never True What is Your Housing Situation Today?: I Have Housing Are You Worried That in the Next 2 Months, You May Not Have Your Own Housing to Live In?: No Do You Have Trouble Paying Your Heating Or Electricity Bill?: No Do You Have Trouble Paying For Medicines?: No Are You Currently Unemployed and Looking for Work?: No Highest Level of Education Completed: Master's Degree or Higher Do You Have Trouble With Childcare or the Care of a Family Member?: Yes Additional living arrangements comments: - tenisha - has 1 child (son) Additional occupation/education comments: stay at home mother Gender identity (if verbalized by the patient): Female Spiritual care concerns: No Anes - Eval Final PreProcedure Day of Procedure 12/12/21 16:27 Patient weight: overweight Heart: regular rate and rhythm Lungs: clear to auscultation and normal air movement Airway: Mallampati scale class II Neurological: alert and oriented Last oral intake: >/= 8 hours ASA classification: II Emergent: no Anesthetic plan: proceed Anesthesia type and monitoring: regional spinal Results Review: All pre-operative results and documents have been reviewed as part of the pre-operative evaluation. Informed Consent: The patient's anesthetic plan and its attendant risks and benefits were discussed with the patient/family/POA. Questions were solicited and answers provided to the satisfaction of the patient/family/POA.
[2021-12-13] VITALS (43 sets, daily range): BP systolic 82–112; BP diastolic 37–65; PULSE 60–111; RESP 16–18; TEMP 36.2–36.6; O2SAT 91–100; BMI 36.8
[2021-12-13] MEDS: LACTATED RINGERS 1,000 ML 999 ML IV CONT (10:59)
--- NOTE | 2021-12-13 11:47 | PM.IMHP ---
H&P: HPI History of Present Illness Date/Time: 12/13/21 11:47 Chief Complaint: Here for c section Narrative: 31 y/o at 39 3/7 weeks here for repeat . GBS neg. Rare contractions. Good movement. Review of Systems Review of Systems: All systems reviewed & are unremarkable except as noted in HPI and below PMFSH Past Medical History Medical History Arthritis GERD (gastroesophageal reflux disease) H/O thyroid disease Stomach ulcer ANTONIA I (vulvar intraepithelial neoplasia I) Surgical History Surgical History Delivery by section Family History Family History Grandparent Colon cancer Diabetes mellitus Aortic stenosis Hypertension Heart disease Other Neurofibromatosis Grandparent , age 42 Colon cancer Grandparent Carcinoma of colon Mother Depression Father Depression Sibling Depression Sibling Depression Scanlon esophagus Social History Social History Smoking status: Never smoker Second hand tobacco smoke exposure: No Alcohol intake: current Drinks per week: 3 Substance use: never Substance use type: does not use Has the Lack of Transportation Kept You From Medical Appointments or From Getting Medications?: No Within the Past 12 Months, Were You Worried Whether Your Food Would Run Out Before You Got Money to Buy More?: Never True What is Your Housing Situation Today?: I Have Housing Are You Worried That in the Next 2 Months, You May Not Have Your Own Housing to Live In?: No Do You Have Trouble Paying Your Heating Or Electricity Bill?: No Do You Have Trouble Paying For Medicines?: No Are You Currently Unemployed and Looking for Work?: No Highest Level of Education Completed: Master's Degree or Higher Do You Have Trouble With Childcare or the Care of a Family Member?: Yes Additional living arrangements comments: - tenisha - has 1 child (son) Additional occupation/education comments: stay at home mother Gender identity (if verbalized by the patient): Female Spiritual care concerns: No Meds Home Medications and Allergies Home Medications Medication Instructions Recorded Confirmed Type vits no.124-ferrous fum 1 tablet PO DAILY 10/18/19 12/13/21 History 27 mg iron-folic acid 800 mcg tablet ( Vitamin) Allergies Allergy/AdvReac Type Severity Reaction Status Date / Time No Known Allergies Allergy Verified 12/04/21 12:37 Vital Signs Vital Signs - 24 hr 12/13/21 10:20 12/13/21 10:32 Pulse Rate 88 Blood Pressure 112/58 L Oxygen Delivery Room Air Exam Const: Orientation/consciousness: patient oriented x3 Other: Well-developed, well-nourished female in no acute distress. Neck: Thyroid: thyroid normal Lymphatic: no lymphadenopathy noted (in neck, axilla or inguinal nodes) Resp: Effort & Inspection: normal respiratory effort Auscultation: clear to auscultation bilaterally Cardio: Rate: regular rate Rhythm: regular rhythm Heart sounds: S1 normal heart sound present and S2 normal heart sound present GI: Other: ABD: Soft, nontender, nondistended, gravid. NST reactive. TOCO: no contractions No guarding or rebound tenderness. No hepatosplenomegaly. : General: Yes no CVA tenderness Other: Cervix 1-2 cm / 50 / -2 Back/Spine/Pelvis: Back: no CVA tenderness Skin: General skin exam: normal color and no rashes or lesions noted Neuro: General: patient oriented x3 Extrem: Other: Extremities: nontender with no edema Psych: Mental Status: mental status grossly normal Affect: normal affect Assessment and Plan Assessment and plan (1) History of delivery: Code(s): Z98.891 - History of uterine scar from previous surgery
[2021-12-13] MEDS: ceFAZolin 2 GM/D5W 50 ML 2 GM/50 ML BAG IVPB (11:48)
--- NOTE | 2021-12-13 11:51 | WPDHPUPDATE1 ---
History and Physical Update Update Date/Time: 12/13/21 11:51 History and Physical has been reviewed, including an updated exam of the patient. There are NO changes in the patient's condition. Risks, benefits, and alternatives have been discussed and questions answered. Patient agrees to proceed with procedure.
[2021-12-13] MEDS: KETOROLAC 30 MG/ML VIAL (*BKC) IV PUSH ×2 (12:30→23:13)
--- NOTE | 2021-12-13 13:06 | P.PCNOB_ITS ---
OB - Delivery Note Procedure Delivery date: 12/13/21 Procedure: Procedures Operation Date: 12/13/21 12:00 <No data on this case meets the specified criteria> Repeat low transverse delivery Delivery monitor: External FHT and External Uterine Route of delivery: Specimen: Yes (cord blood) Quantitative Blood Loss (ml): 408 Anesthesia type: Spinal Disposition: PACU Complications: None Narrative: The patient was taken to the operating room where she was prepared and draped in the usual sterile fashion in dorsal supine position with a leftward tilt. She received cefazolin preoperatively. Spinal anesthesia was found to be adequate. A Pfannenstiel skin incision was made along the previous scar line and was carried through to the underlying layer of the fascia. The fascia was incised in the midline and the incision was extended laterally. The fascia was dissected free of the underlying rectus muscles. The rectus muscles were in the midline. The peritoneum was identified, tented up and entered sharply. The peritoneal incision was extended superiorly and inferiorly with good visualization of the bladder. The bladder blade was placed. The vesicouterine peritoneum was identified, tented up and entered sharply. The incision was extended laterally and the bladder flap was developed. The bladder blade was replaced. The uterus was then incised sharply in a transverse fashion along the lower uterine segment. The incision was extended laterally. The infant's head was delivered atraumatically to the sterile field, followed by the body. The nose and mouth were bulb suctioned. After a delay, the cord was clamped and cut. The was handed off the field. Cord blood was collected. The placenta was removed manually and was passed off the field. The uterus was exteriorized and cleared of all clots and debris. The uterine incision was reapproximated using 0 Monocryl in a running, locked fashion. A second, imbricating layer of the same suture was run. Excellent hemostasis resulted as did excellent reapproximation of the normal anatomy. The uterus was returned the abdomen. The pelvis was irrigated copiously with warmed normal saline. The bladder flap was treated with Hemaderm. Rigorous hemostasis was assured. The fascial layer was reapproximated using 0 Vicryl in a running fashion. The skin was closed with a running, subcuticular stitch of 4 0 Vicryl. Dermaflex was applied externally. Sponge, lap, needle and instrument counts were correct. The patient was taken to the recovery room in stable condition. The infant went to the nursery in stable condition. I was present and scrubbed the entire procedure. [facility] Baby Date of : 12/13/21 Time of : 12:26 Weeks of gestation at delivery: 39 gender: Male Weight (pounds): 7 Weight (ounces): 14 presentation: vertex Placenta delivery description: Manual Removal and Normal Configuration Cord Vessel Description: 3 Vessels score one minute: 9 score five minutes: 9
--- NOTE | 2021-12-13 13:08 | PM.OBDSVD ---
DS: Admitting Diagnosis Discharge Date 12/15/21 Admitting Diagnosis IUP at 39 3/7 weeks Prior , desires repeat DS: Discharge Diagnosis Discharge Diagnosis (1) delivery delivered: Code(s): O82 - Encounter for delivery without indication Status: Acute OB - DS: Summary OB Procedures : None OB Procedures Intrapartum: OB Procedures: : None Peripartum Data Procedures: Procedures Operation Date: 12/13/21 12:00 <No data on this case meets the specified criteria> Repeat LTCS Time Spent with Patient Time attestation: Total time spent providing and/or coordinating discharge services: Discharge Plan Discharge Attending physician on discharge: Kartik Morse Consulting providers: Mike Orlando ; Marleny Reyes Discharging Clinician: Kartik Morse Patient Disposition: Home, Self-Care Activity: may shower, may drive after 2 weeks and pelvic rest Diet: regular Wound Care Instructions: incision open to air Discharge Instructions: Education: Mom and Baby Guide Given to: Mother Follow-Up: Call your delivering provider's office for an appointment to be seen in: 4 Weeks Mom and baby should come to the [facility] for the follow-up appointment. Appointment Date/Time: Friday, December 17, 2021 at 10:00 a.m. What to expect at your follow-up visit: Blood Pressure Check Physical Assessment Call [phone] if you are unable to keep your appointment time. BREAST CARE: * Wear a snug supportive bra. * For engorgement discomfort: Breast Feeding: * Apply warm moist washcloths * Express milk as needed to relieve engorgement * Wear loose clothing * For sore nipples: * Identify correct latch-on * Apply warm moist washcloths before and after nursing * Air dry nipples after nursing * May apply Lansinoh cream to nipples ABDOMINAL INCISION: (if applicable) * Allow incision to air dry * Do NOT use lotions for powders on your incision * When showering, allow soap and water to run over the incision, but do not wash incision EPISIOTOMY/PERINEAL CARE: * Change your pad frequently throughout the day * You may take sitz baths several times a day (fill your bathtub with warm water and soak for 20 minutes.) Do NOT bathe in the water * No tub baths until seen by your physician - You may shower ACTIVITY: * Rest as much as possible. * Do not exercise or lift anything heavier than your baby (such as laundry or other children.) * Avoid stairs or driving as much as possible. * Do not put anything into the vagina. No douching, tampons, or sexual activity until seen by physician. NOTIFY PHYSICIAN IF YOU HAVE ANY QUESTIONS OR IF ANY OF THE FOLLOWING SYMPTOMS OCCUR: * If your incision becomes red, swollen, or more painful than what you have experienced in the hospital. * If your vaginal bleeding becomes foul smelling. * If your vaginal bleeding becomes more heavy than a period or if your bleeding changes from pink to bright red. However, you may pass an occasional walnut-sized clot once or twice for the first week . * If you experience a sharp, shooting pain in you calves. * If you discover a hard, reddened area on your breast or if you experience flu-like symptoms. DIET: * Eat regular, well-balanced meals. * Drink plenty of fluids daily. If , drink to thirst. Stand Alone Forms: General Discharge Information Follow-up/Referrals: Kartik Morse MD [Physician] - 4 Weeks Discharge Medications: New ibuprofen 600 mg tablet 600 mg PO Q6H PRN (Reason: cramps) Qty: 30 0RF hydrocodone-acetaminophen 5-325 mg tablet 1 - 2 tablet PO Q6H Qty: 30 0RF Continued Vitamin 27 mg iron- 800 mcg Tablet 1 tablet PO DAILY Date of admission: 12/13/21 09:57 Primary Care Provider: Ema
[2021-12-13] MEDS: ONDANSETRON INJ 4 MG/2 ML VIAL IV PUSH (13:45)
--- NOTE | 2021-12-13 15:47 | PC.NURSE ---
1533-Patient transferred to post room #291 via stretcher. Support person present. Oriented to unit, room, information board, rooming in, admission packet and security measures. Patient verbalizes understanding.
[2021-12-13] MEDS: DEXTROSE 5%/0.45% SOD CHL 1,000 ML 125 ML IV CONT (15:56)
[2021-12-13] MEDS: DOCUSATE SODIUM 100 MG CAPSULE PO (16:47)
[2021-12-14 00:02] VITALS: BP 103/49; PULSE 86; RESP 18; TEMP 37.1; O2SAT 99
[2021-12-14 03:30] VITALS: BP 97/58; PULSE 86; RESP 18; TEMP 36.8; O2SAT 99
[2021-12-14 05:47] LABS: Basophils Percent Auto 0.3 % (0.2-1.2); Eosinophils Percent Auto 0.4 % (0-4.4); Hematocrit 26.8 % (37.0-47.0); Hemoglobin 8.8 g/dL (12.0-15.0); Immature Granulocyte Absolute 0.05 K/mm3 (0.00-0.031); Immature Granulocyte Percent A 0.5 % (0-0.5); Lymphocytes Absolute Auto 1.27 K/mm3 (0.9-3.2); Lymphocytes Percent Auto 11.5 % (18.3-44.2); Mean Corpuscular HGB Conc 32.8 g/dl (32-36); Mean Corpuscular Hemoglobin 27.8 pg (26-34); Mean Corpuscular Volume 84.5 fl (80-100); Mean Platelet Volume 9.9 fl (7.4-10.4); Monocytes Absolute Auto 0.9 K/mm3 (0.1-0.6); Monocytes Percent Auto 8.3 % (2.6-8.5); Neutrophils Absolute Auto 8.8 K/mm3 (1.3-6.7); Platelet Count Result 235 k/mm3 (150-375); Red Blood Count 3.17 M/mm3 (4.2-5.4); Red Cell Distribution Width 13.3 % (11.5-14.5); White Blood Count 11.1 K/mm3 (4.5-10.0)
[2021-12-14] MEDS: IBUPROFEN 600 MG TABLET PO ×3 (06:04→22:00)
[2021-12-14] MEDS: SIMETHICONE 80 MG TAB.CHEW PO ×4 (06:04→22:00)
[2021-12-14] MEDS: HYDROcodone/acetaminophen (*CRX) 5-325 MG TABLET 1 TAB PO ×5 (06:04→22:00)
--- NOTE | 2021-12-14 06:40 | PM.OBPNVD ---
OB - PN: Subj Subjective Date/time seen: 12/14/21 06:40 Patient comments: no complaints, pain well controlled and flatus present [place] baby status: doing well OB - PN: Obj Data Labs CBC & Chem 7: 12/14/21 03:19 Labs: Laboratory Results - last 24 hr 12/14/21 03:19 WBC 11.1 H RBC 3.17 L Hgb 8.8 L Hct 26.8 L MCV 84.5 MCH 27.8 MCHC 32.8 RDW 13.3 Plt Count 235 MPV 9.9 Immature Gran % (Auto) 0.5 Neut % (Auto) 79.0 H Lymph % (Auto) 11.5 L Mellette % (Auto) 8.3 Eos % (Auto) 0.4 Baso % (Auto) 0.3 Lymph # (Auto) 1.27 Mellette # (Auto) 0.9 H Eos # (Auto) 0.0 Baso # (Auto) 0.0 Abs Immat Gran (auto) 0.05 H Absolute Neuts (auto) 8.8 H Absolute Nucleated RBC 0.0 Nucleated RBC % 0.0 OB - PN A/P Plan day: 1 Plan: routine care Comments: circ son this am Time Spent With Patient Time: Total time spent is greater than 50% in coordination of care (as documented) at patient's floor/unit and/or counseling patient: Time with patient: less than 15 minutes Exam Const: General: cooperative, healthy appearing and comfortable Orientation/consciousness: oriented to person, oriented to place and oriented to time Resp: Effort & Inspection: normal respiratory effort GI: Inspection: normal to inspection and incision (cdi)
--- NOTE | 2021-12-14 06:45 | PC.NURSE ---
PT introductions made and plan of care discussed per post op c section, pain management, daily care activities, breast feeding. PT and spouse both received instructions per one to one discussion, mom baby care guide, demonstrations this shift. No barriers to learning identified at this time. PT verbalized understanding of such care.
[2021-12-14 08:20] VITALS: BP 95/49; PULSE 73; RESP 18; TEMP 36.6; O2SAT 98
[2021-12-14] MEDS: DOCUSATE SODIUM 100 MG CAPSULE PO ×2 (09:46→17:55)
[2021-12-14] MEDS: MULTIVIT/MIN/PREN/FOL AC/IRON TABLET 1 TAB PO (09:46)
[2021-12-14] MEDS: POLYSACCHARIDE IRON COMPLEX 150 MG CAPSULE PO ×2 (09:46→17:55)
[2021-12-14 10:00] VITALS: PULSE 73; RESP 18; O2SAT 98
[2021-12-14 11:51] VITALS: BP 98/47; PULSE 76; RESP 16; TEMP 36.6; O2SAT 98
--- NOTE | 2021-12-14 13:08 | WPDANLDNPN2 ---
Anes-Prog Note L&D-Neuraxial Date/Time: 12/14/21 13:08 Patient feedback: Patient satisfied with post-operative pain management.
--- NOTE | 2021-12-14 13:08 | WPDANLDPN2 ---
Anes-Prog Note L&D Date/Time: 12/14/21 13:08 Neuro status: Neuro function grossly intact. Vital Signs: Last Vital Signs Temp 36.6 C 12/14/21 11:51 Pulse 76 12/14/21 11:51 Resp 16 12/14/21 11:51 BP 98/47 L 12/14/21 11:51 Pulse Ox 98 12/14/21 11:51 O2 Del Method Room Air 12/14/21 10:00 Pain score (VAS): 0 I/O: Intake & Output 12/13/21 12/14/21 12/14/21 23:59 07:59 15:59 Intake Total 793 1300 480 Output Total 175 1750 Balance 618 -450 480 Patient feedback: Patient satisfied with anesthetic care.
--- NOTE | 2021-12-14 14:36 | PC.NURSE ---
1100 - Introductions were made, then consulted with patient to assess needs related to . Mother led the conversation with her?plans to feed?her and states infant has been latching often and optimally with no pain. Mother has 20 months of history. Resources provided for inpatient and outpatient services using a resource guide. Mother voiced understanding of information and will call for a flange fit later today.
[2021-12-14 20:00] VITALS: BP 109/58; PULSE 88; RESP 18; TEMP 36.3; O2SAT 100
[2021-12-15] MEDS: HYDROcodone/acetaminophen (*CRX) 5-325 MG TABLET 1 TAB PO ×3 (04:40→12:16)
[2021-12-15] MEDS: SIMETHICONE 80 MG TAB.CHEW PO ×3 (04:41→12:15)
[2021-12-15] MEDS: IBUPROFEN 600 MG TABLET PO ×2 (04:41→12:15)
--- NOTE | 2021-12-15 06:18 | PM.OBPNVD ---
OB - PN: Subj Subjective Date/time seen: 12/15/21 06:18 Patient comments: no complaints and pain well controlled baby status: doing well and nursing well OB - PN: Obj Data Labs CBC & Chem 7: 12/14/21 03:19 OB - PN A/P Plan day: 2 Plan: routine care, discharge home and follow up 6 weeks (4) Time Spent With Patient Time: Total time spent is greater than 50% in coordination of care (as documented) at patient's floor/unit and/or counseling patient: Time with patient: less than 15 minutes Exam Const: General: cooperative, healthy appearing, comfortable and well groomed Orientation/consciousness: oriented to person, oriented to place and oriented to time HENMT: Head: normal to inspection Resp: Effort & Inspection: normal respiratory effort GI: Inspection: normal to inspection and incision (Clean dry and intact)
[2021-12-15 08:00] VITALS: BP 108/54; PULSE 77; RESP 16; TEMP 36.4; O2SAT 100
[2021-12-15] MEDS: POLYSACCHARIDE IRON COMPLEX 150 MG CAPSULE PO (09:13)
[2021-12-15] MEDS: DOCUSATE SODIUM 100 MG CAPSULE PO (09:13)
[2021-12-15] MEDS: MULTIVIT/MIN/PREN/FOL AC/IRON TABLET 1 TAB PO (09:13)
--- NOTE | 2021-12-15 11:03 | PC.NURSE ---
Patient was given the opportunity to view the discharge video Mother & Baby Care, The First Two Weeks and to ask questions. Patient declined viewing the video at this time and has been given the mother/baby guide for home reference.
[2021-12-17 11:02] VITALS: BP 115/69; PULSE 84; RESP 18; TEMP 36.8; O2SAT 98
== END 2021-12-15 12:40 | disposition home or self-care (01) | DRG 788 ==
LOC: ANHLDR 13:10 → ANHOB2 12-15 11:01 → ANHLDR 12-19 11:07 → ANHOB2 12-19 11:07
PROVIDERS: Admitting Provider Obstetrics & Gynecology; PCP Internal Medicine; Visit Provider Obstetrics & Gynecology
PROC: 10D00Z1 Extraction of Products of Conception, Low, Open Approach (ICD-10-PCS; CPT 59514; principal; 2021-12-13 12:00)
DX: O34.211 Maternal care for low transverse scar from previous cesarean delivery (principal); Z37.0 Single live birth; Z3A.39 39 weeks gestation of pregnancy; O99.62 Diseases of the digestive system complicating childbirth; K21.9 Gastro-esophageal reflux disease without esophagitis
CPT/HCPCS: 36415; 85025; 85027; 86592; 86850; 86900; 86901; A9270; J0131; J0690; J1885; J2274; J2370; J2405; J2590; J3010; J7120

== ENCOUNTER 2024-07-06 10:44 | Outpatient (CLI) | payer OTHER, SELFPAY ==
--- NOTE | ~2024-07-06 | US_ITS ---
EXAMINATION: US thyroid DATE: 07/06/2024 11:00 INDICATION: Thyromegaly TECHNIQUE: Multiple ultrasound images of the thyroid were obtained. COMPARISON: 06/06/2020 FINDINGS: The right thyroid lobe measures 7.2 x 2.8 x 3.1 cm. The left thyroid lobe measures 5.3 x 1.8 x 1.7 c m. Wider than tall 3.9 x 2.4 x 2.8 cm solid hypoechoic nodule without echogenic foci at the inferior right thyroid lobe. (TI-RADS 4, moderately suspicious , FNA if >=1.5 cm, annual followup is >=1 cm). This significantly increased time of a prior biopsy on 07/07 at which time the nodule measured 1.8 c m maximal diameter. The thyroid isthmus measures 8 mm in thickness. There is normal echotexture, echo genicity and vascular flow throughout the remainder of the thyroid gland. IMPRESSION: 1. 3.9 cm Ti RADS 4 right thyroid nodule with significant increase in size from 2020 and repeat ultr asound-guided biopsy would be recommended. Reviewed, dictated and finalized at location A. IMPRESSION: 1. 3.9 cm Ti RADS 4 right thyroid nodule with significant increase in size fro 2020 and repeat ultrasound-guided biopsy would be recommended.
== END 2024-07-06 10:45 | disposition home or self-care (01) ==
PROVIDERS: PCP Internal Medicine; Visit Provider Obstetrics & Gynecology
DX: E01.0 Iodine-deficiency related diffuse (endemic) goiter (principal)
CPT/HCPCS: 76536

== ENCOUNTER 2024-08-17 09:54 | Outpatient (CLI) | payer OTHER, SELFPAY ==
--- NOTE | ~2024-08-17 | US_ITS ---
EXAMINATION: US THYROID BIOPSY DATE: 08/17/2024 17:24 CDT INDICATION: Enlarged right thyroid lobe nodule TECHNIQUE: The procedure for biopsy of the thyroid nodule and its benefits and risks were explained to the patie nt. Potential risk included were not limited to bleeding, infection, and nondiagnostic specimen. The neck was prepped and draped in the usual sterile manner. 3 cc 1% lidocaine was used for local an esthesia. [6 passes were made with a 25G needle into the right thyroid lesion. Appropriate needle l ocation was documented with continuous sonographic guidance. The specimens were passed to the cytopa thologist in the room. All needles were removed and a sterile bandage applied over the biopsy site. The patient tolerated t he procedure without immediate complications or complaints. FINDINGS: Subsequent images demonstrate needles advanced into the lesion for biopsy. IMPRESSION: 1. Successful ultrasound guided biopsy of right thyroid nodule. Please refer to pathology report fo r final histologic analysis. Reviewed, dictated and finalized at location A. IMPRESSION: 1. Successful ultrasound guided biopsy of right thyroid nodule. Please refer to pathology report for final histologic analysis.
--- OUTSIDE RECORDS SUMMARY | 2024-08-17 10:07 | XMS_ITS | Encounter Summary ---
Author Organization [facility] Address [address] [place] [address] Care Team Providers Care Flute Teacher Name Role Phone Aguilar Boo MD Primary Care Provider [phone] Encounter Details Date Type Department Care Team (Late st Contact Info) Description 04/10/2021 RxCost Containmentt Message Enc [facility] Medical Group Diabetes and Endocrinology - [place] [address] [facility] [place] [address] [place] [address] [place] [address] Thyroid US & status Social History Tobacco Use Types Packs/Day Years Used Date Smoking Tobacco: Never Smokeless Tobacco: Never Alcohol Use Standard Drinks/Week Comments Yes 3.3 (1 standard drink = 0.6 oz p ure alcohol) red wine PHQ-2 Answer Date Recorded PHQ-2 Score - If the patient scores above 3, please move on to questions 3-9 0 01/31/2021 Comments Unknown Sex and Gender Information Value Date Recorded Sex Assigned at Not on file Legal Sex Female 3:59 PM CDT Gender Identity Female 01/30/2021 2:20 PM MATCHBOOK ASSEMBLER Sexual Orientation Straight 01/30/2021 2: 20 PM MATCHBOOK ASSEMBLER COVID-19 Exposure Response Date Recorded In the last 10 days, have yo u been in contact with someone who was confirmed or suspected to have Coronavirus/COVID-19? No / Unsure 04/11/2021 1:40 PM MATCHBOOK ASSEMBLER documented as of this encounter Plan of Treatment Not on file documented as of this encounter Visit Diagnoses Not on filedocumented in this encounter Additional Health Concerns Infection Onset Date Last Indicated Resolved Time COVID-19 Rule Out 02/06/2022 02/06/2022 02/06/2022 11:51 AM MATCHBOOK ASSEMBLER COVID-19 Confirmed 02/06/2022 02/06/2022 12:32 AM MATCHBOOK ASSEMBLER Assessment Noted Time PHQ-9 Depression Total Score: 0 02/01/20 8:44 AM MATCHBOOK ASSEMBLER documented as of this encounter Care Teams Flute Teacher Relationship Specialty Start Date End Date Aguilar Boo MD [address] [place] [address] PCP - General INTERNAL MEDICINE 11/01/20 documented as of this encounter
--- OUTSIDE RECORDS SUMMARY | 2024-08-17 10:07 | XMS_ITS | Clinical Summary ---
Author Organization [facility] Address [facility] [place] [address] Care Team Providers Care Electrical Foreman Name Role Phone Aguilar Boo MD Primary Care Provider [phone] Allergies No known active allergies Medications vitamin 27-1 MG Tab tablet Take 1 tablet by mouth daily. Active Probiotic Product (SOLUBLE FIBER/PROBIOTIC S) Chew Tab Chew 2 chewable tablet by mouth daily. Active Active Problems Problem Noted Date Diagnosed Date Multinodular goiter 11/01/2020 Palpitations 11/01/2020 Gastroesophageal reflux disease without esophagi tis 11/01/2020 Resolved Problems Problem Noted Date Diagnosed Date Resolved Date Abnormal genetic test during 06/07/2019 03/10/2022 Overview (11/01/2020): 05/25/19 NIPT abnormal - fraction 2.6%, Triploidy HR Supervision of normal first ([facility]) 06/07/2019 11/01/2020 Overview (11/01/2020): O+ Neg/ Imm/ rpr-NR/ HIV-NR/ HBSag-NR 12.3/36.1, Plt 352 Encounters Date Type Department Care Team Description 07/06/2024 Scan [facility] Scanned, Doc Med Group Ultrasound (SCAN) from Last 3 Months Immunizations Immunization Administration Dates Next Due Flucelvax 2 YRS+ (Multi-Dose Vial) 12/01/2018 Influenza Adult (Generic) 11/27/2021,06/2020,11/13/2019,12/02/19 19 Tdap (Generic) 10/30/2021,09/30/2019 Family History Medical History Relation Comments Alcohol Abuse Father COPD Father Tobacco abuse an d environmental irritants from job Cancer Maternal Grandfather Colon Ca - at 42yo Early Maternal Grandfather Age 42 from colon cancer Cancer Maternal Grandmother Cancer Paternal Grandfather Colon Ca Cancer Paternal Grandmother Colon ca Diabetes Paternal Grandmother Type 2 Heart Disease Paternal Grandmother Aortic sten osis - at age 90 due to complications of this Hypertension Paternal Grandmother Aortic sten osis barretts esophogus Sister 1 Miscarriages / Stillbirths Sister 2 misca rriage and infertility Relation Status Comments Father Maternal Grandfather Maternal Grandmother Paternal Grandfather Paternal Grandmother Sister 1 Sister 2 Social History Tobacco Use Types Packs/Day Years Used Date Smoking Tobacco: Never Smokeless Tobacco: Never Alcohol Use Standard Drinks/Week Comments Yes 3.3 (1 standard drink = 0.6 oz p ure alcohol) red wine PHQ-2 Answer Date Recorded Patient Health Questionnaire-2 Score 0 03/05/2022 Comments No Sex and Gender Information Value Date Recorded Sex Assigned at Not on file Legal Sex Female 3:59 PM CDT Gender Identity Female 01/30/2021 2:20 PM ADMINISTRATIVE TECH Sexual Orientation Straight 01/30/2021 2: 20 PM ADMINISTRATIVE TECH Last Filed Vital Signs Vital Sign Reading Time Taken Comments Blood Pressure 102/70 03/05/2022 11:45 AM ADMINISTRATIVE TECH Pulse 67 03/05/2022 11:45 AM ADMINISTRATIVE TECH Temperature 36.7 C (98 F) 03/05/2022 11:45 AM ADMINISTRATIVE TECH Respiratory Rate 14 03/05/2022 11:45 AM ADMINISTRATIVE TECH Oxygen Saturation 98% 03/05/2022 11:45 AM ADMINISTRATIVE TECH Inhaled Oxygen Concentration - - Weight 88.2 kg (194 lb 6.4 oz) 03/05/2022 11:45 AM ADMINISTRATIVE TECH Height 162.6 cm (5' 4) 03/05/2022 11:45 AM ADMINISTRATIVE TECH Body Mass Index 33.37 03/05/2022 11:45 AM ADMINISTRATIVE TECH Plan of Treatment Health Maintenance Due Date Last Done Comments Cervical Cancer Screening Pa p Smear (Age 30 to 64) Every 3 Years 1989 Annual Physical 1992 Hepatitis C 05/24/2007 Hepatitis B Vaccines (1 of 3 - 19+ 3-dose series) 2008 Cervical Cancer Screening Pa p with HPV Testing (Age 30 to 64) Every 5 Years 05/24/2019 Cervical Cancer Screening wi th HPV 05/24/2019 COVID-19 Vaccine (4 - 2023-2 5 season) 2023 12/06/2020, 05/10/2020, 04/12/2020 PHQ-2 (Physician [place]) 02/18/2024 DTaP, Tdap and Td Vaccines ( 3 - Td or Tdap) 10/31/2031 10/30/2021, 09/30/2019 HPV Vaccines Aged Out No longer eligi ble based on patient's age to complete this topic Meningococcal B Vaccine Aged Out No l onger eligible based on patient's age to complete this topic Meningococcal Vaccine Aged Out No you ronda eligible based on patient's age to complete this topic Pneumococcal Vaccine: Pediatrics (0 to 5 Years) and At-Risk Patients (6 to 49 Years) Aged Out No longer eligible b ased on patient's age to complete this topic RSV Immunizations Under 20 Months Aged Out No longer eligible b ased on patient's age to complete this topic Procedures Procedure Name Priority Date/Time Associated Diagnosis Comments ULTRASOUND GENERIC (SCAN ORDER) 07/06/2024 from Last 3 Months Results * ULTRASOUND GENERIC (SCAN ORDER) (07/06/2024) Anatomical Region Laterality Modality Other 07/06/2024 us Doc Med Group Scanned SCANNING Final Resu lt from Last 3 Months Insurance [facility] Care Teams Electrical Foreman Relationship Specialty Start Date End Date Aguilar Boo MD [address] [place] [address] PCP - General INTERNAL MEDICINE 11/01/20
--- OUTSIDE RECORDS SUMMARY | 2024-08-17 10:07 | XMS_ITS | Clinical Summary ---
Author Organization [facility] Address [address] [place] [address] Care Team Providers Care Shingle Inspector Name Role Phone Leticia Chang MD Unavailable [phone] Elliot Don MD Primary Care Provider [phone] Source Comments [facility],non-owned Affiliates and Associated Physician Practices is amultiple site organization consisting of ambulatory clinics and hospital sitesin [place], [place], [place] and [place]. This disclosure is being madepursuant to the Care Everywhere program and may not contain all information available regarding this patient. Last updated 17.[facility] Allergies No known active allergies Medications * Be aware that medications may not be up to date on this document. Alwaysverify current medications with the patient. HYDROcodone-roque taminophen (NORCO) 5-325 MG tablet TK 1 TO 2 TS PO Q 6 H PRN P 0 Active ibuprofen (MOTRIN) 200 MG tablet Active levothyroxine (SYNTHROID) 100 MCG tablet Take 100 mcg by mouth daily before breakfast Active Active Problems Problem Noted Date Diagnosed Date Abnormal genetic test during 0 Overview (06/07/2019): 05/25/19 NIPT abnormal - fraction 2.6%, Triploidy HR Supervision of normal first 06/07/2019 Overview (06/07/2019): O+ Neg/ Imm/ rpr-NR/ HIV-NR/ HBSag-NR HH 12.3/36.1, Plt 352 Resolved Problems Problem Noted Date Diagnosed Date Resolved Date Screening for condition 11/09/201505/19 Overview (11/09/2015): 10/31/2015: PAP ASCUS, HPV neg --> Repeat 2018 Family history of colon cancer 03/13/2015 06/07/2019 Gastroesophageal reflux dise ase without esophagitis 03/13/2015 06/07/2019 Epigastric pain 03/13/2015 06/07/2019 Family History Medical History Relation Name Comments Cancer - Colon Maternal Grandfather Cancer - Colon Paternal Grandfather Cancer - Colon Paternal Grandmother Heart Failure Paternal Grandmother Heart defect Paternal Grandmother aortic stenosis severe Other Sister 1 barecony's whitneya willi Relation Name Status Comments Father Alive Maternal Grandfather Mother Alive Paternal Grandfather Paternal Grandmother Alive Sister 1 Alive Sister 2 Alive Social History Tobacco Use Types Packs/Day Years Used Date Smoking Tobacco: Never Smokeless Tobacco: Never Alcohol Use Standard Drinks/Week Comments Yes 0 (1 standard drink = 0.6 oz pur e alcohol) Socially Comments No Sex and Gender Information Value Date Recorded Sex Assigned at Not on file Legal Sex Female 12:54 PM BIT SHARPENER Gender Identity Not on file Sexual Orientation Not on file Last Filed Vital Signs Vital Sign Reading Time Taken Comments Blood Pressure 98/62 06/05/2020 8:21 AM CDT Pulse 82 03/13/2015 9:29 AM BIT SHARPENER Temperature 36.3 C (97.4 F) 06/05/2020 8:21 AM CDT Respiratory Rate 20 03/13/2015 9:29 AM BIT SHARPENER Oxygen Saturation 99% 03/13/2015 9:29 AM BIT SHARPENER Inhaled Oxygen Concentration - - Weight 88.5 kg (195 lb) 06/05/2020 8:21 AM CDT Height 162.6 cm (5' 4) 06/05/2020 8:21 AM CDT Body Mass Index 33.47 06/05/2020 8:21 AM CDT Plan of Treatment Health Maintenance Due Date Last Done Comments HIV SCREENING 2004 HEPATITIS C SCREENING 05/19/2007 DTAP/TDAP/TD VACCINES (1 - Tdap) 2008 HEPATITIS B VACCINE (1 of 3 - 19+ 3-dose series) 2008 PAP with HPV 10/30/2020 10/31/2015, 10/31/2015 COVID-19 VACCINE ( - 2023-2 5 season) 2023 DEPRESSION SCREENING 02/18/2024 INFLUENZA VACCINE (Season Ended) 2024 ZOSTER VACCINE (1 of 2) 05/24/2039 HIB VACCINE Aged Out No longer eligi ble based on patient's age to complete this topic HPV VACCINE Aged Out No longer eligi ble based on patient's age to complete this topic MENINGOCOCCAL (Group B) VACCINE SHARED DECISION-MAKING Aged Out No longer eligible based on patient's age to complete this topic MENINGOCOCCAL GROUPS A/C/Y/W VACCINE Aged Out No longer eligible b ased on patient's age to complete this topic PNEUMOCOCCAL VACCINE Aged Out No long er eligible based on patient's age to complete this topic Procedures Procedure Name Priority Date/Time Associated Diagnosis Comments HPV DNA PROBE Routine 10/31/2015 10:13 AM CDT Well female exam with routine gynecological exam from Last 3 Months or Most Recently Relevant to Health Maintenance Results * HPV DNA PROBE (10/31/2015 10:13 AM CDT) Human papillomavirus Aptima Negative Negative [facility] ACCOUNT BILL Comment: This test detects fourteen high-risk HPV types (16/18/31/33/35/39/45/ 51/52/56/58/59/66/68) without differentiation. 10/31/2015 10:1 3 AM CDT 11/01/2015 2:21 AM CDT Narrative [facility] ACCOUNT BILL - 11/07/2015 4:08 PM CDT Source.............Cervix No. of containers..01 CYTYC Thin Prep Vial Resulting Agency Comment [facility] [address] [place] [id number] us Peyton Anna MD LAB - SEROLOGY ORD ERABLES Final Result [facility] ACCOUNT BILL [address] [place] [address] from Last 3 Months or Most Recently Relevant to Health Maintenance Insurance [employer] Care Teams Shingle Inspector Relationship Specialty Start Date End Date Elliot Don MD [address] [place] [address] [address] [place] [address] PCP - General 12/28/20 Leticia Chang MD [facility] [place] [address] Obstetrics and Gynecology 03/13/15
--- OUTSIDE RECORDS SUMMARY | 2024-08-17 10:07 | XMS_ITS | Encounter Summary ---
Author Organization [facility] Address [address] [place] [address] Care Team Providers Care Bonderizer Name Role Phone Aguilar Boo MD Primary Care Provider [phone] Encounter Details Date Type Department Care Team (Late st Contact Info) Description 05/18/2021 MyCZenpht Message Enc [facility] Medical Group Diabetes and Endocrinology - [place] [address] [facility] [place] [address] [place] [address] [place] [address] Thyroid test results Social History Tobacco Use Types Packs/Day Years [...] CDT Gender Identity Female 01/30/2021 2:20 PM PAPER SEALER Sexual Orientation Straight 01/30/2021 2: 20 PM PAPER SEALER COVID-19 Exposure Response Date Recorded In the last 10 days, have yo u been in contact with someone who was confirmed or suspected to have Coronavirus/COVID-19? No / Unsure 05/09/2021 2:12 PM CDT documented as of this encounter Plan of Treatment Not on file documented as of this encounter Visit Diagnoses Not on filedocumented in this encounter Additional Health Concerns Infection Onset Date Last Indicated Resolved Time COVID-19 Rule Out 02/06/2022 02/06/2022 02/06/2022 11:51 AM PAPER SEALER COVID-19 Confirmed 02/06/2022 02/06/2022 12:32 AM PAPER SEALER Assessment Noted Time PHQ-9 Depression Total Score: 0 02/01/20 8:44 AM PAPER SEALER documented as of this encounter Care Teams Bonderizer Relationship Specialty Start Date End Date Aguilar Boo MD [address] [place] [address] PCP - General INTERNAL MEDICINE 11/01/20 documented as of this encounter
--- NOTE | 2024-08-17 11:44 | CY_PTH ---
PATIENT: Yokasta Stringer LOC: [facility] U#:[id number] AGE/SX: 34/F ROOM: RE08/17/[address]: Kartik Morse MD : 1990 BED: DIS: 08/17/2024 SPEC #: [id number] RECD: 08/17/24 11:46 STATUS: ADILENE REQ #: [id number] RAIMUNDO: 08/17/24 11:[address]: Kartik Morse DEPT: [facility] Cytology RECD BY: Keturah Padron ENTERED: 08/17/24 11:47 SP TYPE: Cytology OT DR: Aguilar BooMD Tissues: A - FNA Thyroid Procedures: Hematoxylin and Eosin Stain Cell Block Fine Needle Aspiration Evaluation Fine Needle Aspiration Pathologist
== END 2024-08-17 09:55 | disposition home or self-care (01) ==
PROVIDERS: PCP Internal Medicine; Visit Provider Obstetrics & Gynecology
DX: E04.1 Nontoxic single thyroid nodule (principal)
CPT/HCPCS: 10005; 88172; 88173; 88305

== ENCOUNTER 2024-08-17 13:57 | Outpatient (CLI) | payer OTHER, SELFPAY ==
--- NOTE | ~2024-08-17 | US_ITS ---
EXAMINATION: US OB <=14 wk fetus w TV DATE: 08/17/2024 14:32 INDICATION: with inconclusive viability. TECHNIQUE: Real-time pelvic ultrasound utilizing both a transvaginal and transabdominal probe was pe rformed. The interpreting radiologist was not present for the study. COMPARISON: None. FINDINGS: The uterus measures 12.8 x 5.8 x 6.2 cm. There is an intrauterine gestational sac. A pole but no definitive yolk sac is identified. The crown rump length measures 4 mm, which correlates with an e stimated gestational age of 6 weeks and 1 days. There is no definitive heart motion by M-mode D oppler. There is 4.4 x 2.5 cm primarily anechoic fluid surrounding a majority the gestational sac wit hin which is a 1.5 x 0.7 cm peripheral hypoechoic region suspicious for hemorrhage with organizing cl ot. The right ovary measures 3.5 x 2.7 x 3.4 cm. The left ovary measures 2.8 x 2.6 x 4.1 cm. 3.2 cm a nechoic likely corpus luteum cyst in the left ovary. There is no free fluid in the pelvis. IMPRESSION: 1. Single intrauterine gestational sac with 4 mm pole without heart motion on M-mode Dopp ler and without evident yolk sac which is suspicious for but not diagnostic of failed . Cons ider follow-up with serial beta-hCG levels and short interval follow-up ultrasound as clinically clint cated. 2. Gestational age by ultrasound of 6 weeks 1 day(s) +/- 4 day(s) with ultrasound estimated date of delivery ([facility]) of 04/11/2025. 3. Hypoechoic material at the periphery of a 4.4 x 2.5 cm anechoic fluid collection surrounding major ity the gestational sac suspicious for large subchorionic hematoma with some peripheral organizing cl ot. Reviewed, dictated and finalized at location B. IMPRESSION: 1. Single intrauterine gestational sac with 4 mm pole without heart motion on M-mode Doppler and without evident yolk sac which is suspicious for but not diagnostic of failed . Consider follow-up with serial beta-hCG levels and short interval follow-up ultrasound as clinically indicated. 2. Gestational age by ultrasound of 6 weeks 1 day(s) +/- 4 day(s) with ultraso und estimated date of delivery ([facility]) of 04/11/2025. 3. Hypoechoic material at the periphery of a 4.4 x 2.5 cm anechoic fluid collec tion surrounding majority the gestational sac suspicious for large subchorionic hematoma with some peripheral organizing clot.
== END 2024-08-17 13:58 | disposition home or self-care (01) ==
LOC: MICIMG 13:58
PROVIDERS: PCP Nurse Practitioner Family; Visit Provider Nurse Practitioner Family
DX: O36.80X0 Pregnancy with inconclusive fetal viability, not applicable or unspecified (principal); Z3A.00 Weeks of gestation of pregnancy not specified
CPT/HCPCS: 76801; 76817

== ENCOUNTER 2024-08-17 16:06 | Outpatient (CLI) | payer OTHER, SELFPAY ==
--- OUTSIDE RECORDS SUMMARY | 2024-08-17 16:08 | XMS_ITS | Encounter Summary ---
Author Organization [facility] Address [address] [place] [address] Care Team Providers Care Level Designer Name Role Phone Aguilar Boo MD Primary Care Provider [phone] Encounter Details Date Type Department Care Team (Late st Contact Info) Description 04/10/2021 Kingsoft Cloudt Message Enc [facility] Medical Group Diabetes and Endocrinology - [place] [address] [facility] [place] [address] [place] [address] [place] [address] Thyroid US & status Social History Tobacco [...] CDT Gender Identity Female 01/30/2021 2:20 PM CRITICAL CARE EDUCATOR Sexual Orientation Straight 01/30/2021 2: 20 PM CRITICAL CARE EDUCATOR COVID-19 Exposure Response Date Recorded In the last 10 days, have yo u been in contact with someone who was confirmed or suspected to have Coronavirus/COVID-19? No / Unsure 04/11/2021 1:40 PM CRITICAL CARE EDUCATOR documented as of this encounter Plan of Treatment Not on file documented as of this encounter Visit Diagnoses Not on filedocumented in this encounter Additional Health Concerns Infection Onset Date Last Indicated Resolved Time COVID-19 Rule Out 02/06/2022 02/06/2022 02/06/2022 11:51 AM CRITICAL CARE EDUCATOR COVID-19 Confirmed 02/06/2022 02/06/2022 12:32 AM CRITICAL CARE EDUCATOR Assessment Noted Time PHQ-9 Depression Total Score: 0 02/01/20 8:44 AM CRITICAL CARE EDUCATOR documented as of this encounter Care Teams Level Designer Relationship Specialty Start Date End Date Aguilar Boo MD [address] [place] [address] PCP - General INTERNAL MEDICINE 11/01/20 documented as of this encounter
--- OUTSIDE RECORDS SUMMARY | 2024-08-17 16:08 | XMS_ITS | Encounter Summary ---
Author Organization [facility] Address [address] [place] [address] Care Team Providers Care Green Chain Operator Name Role Phone Aguilar Boo MD Primary Care Provider [phone] Encounter Details Date Type Department Care Team (Late st Contact Info) Description 05/18/2021 [email or web address] Message Enc [facility] Medical Group Diabetes and Endocrinology [place] [address] [address] [place] [address] [place] [address] [place] [address] Thyroid test results Social History Tobacco Use [...] CDT Gender Identity Female 01/30/2021 2:20 PM COMPOSITION STONE APPLICATOR Sexual Orientation Straight 01/30/2021 2: 20 PM COMPOSITION STONE APPLICATOR COVID-19 Exposure Response Date Recorded In the [...] Rule Out 02/06/2022 02/06/2022 02/06/2022 11:51 AM COMPOSITION STONE APPLICATOR COVID-19 Confirmed 02/06/2022 02/06/2022 12:32 AM COMPOSITION STONE APPLICATOR Assessment Noted Time PHQ-9 Depression Total Score: 0 02/01/20 8:44 AM COMPOSITION STONE APPLICATOR documented as of this encounter Care Teams Green Chain Operator Relationship Specialty Start Date End Date Aguilar Boo MD [address] [place] [address] PCP - General INTERNAL MEDICINE 11/01/20 documented as of this encounter
--- OUTSIDE RECORDS SUMMARY | 2024-08-17 16:08 | XMS_ITS | Clinical Summary ---
Author Organization [facility] Address [facility] [place] [address] Care Team Providers Care Air Quality Specialist Name Role Phone Aguilar Boo MD Primary Care Provider [phone] Allergies No known active allergies Medications vitamin [...] 2.6%, Triploidy HR Supervision of normal first ([facility]) 06/07/2019 11/01/2020 Overview (11/01/2020): O+ Neg/ Imm/ [...] CDT Gender Identity Female 01/30/2021 2:20 PM RADIOLOGY DIRECTOR Sexual Orientation Straight 01/30/2021 2: 20 PM RADIOLOGY DIRECTOR Last Filed Vital Signs Vital Sign Reading Time Taken Comments Blood Pressure 102/70 03/05/2022 11:45 AM RADIOLOGY DIRECTOR Pulse 67 03/05/2022 11:45 AM RADIOLOGY DIRECTOR Temperature 36.7 C (98 F) 03/05/2022 11:45 AM RADIOLOGY DIRECTOR Respiratory Rate 14 03/05/2022 11:45 AM RADIOLOGY DIRECTOR Oxygen Saturation 98% 03/05/2022 11:45 AM RADIOLOGY DIRECTOR Inhaled Oxygen Concentration - - Weight 88.2 kg (194 lb 6.4 oz) 03/05/2022 11:45 AM RADIOLOGY DIRECTOR Height 162.6 cm (5' 4) 03/05/2022 11:45 AM RADIOLOGY DIRECTOR Body Mass Index 33.37 03/05/2022 11:45 AM RADIOLOGY DIRECTOR Plan of Treatment Health Maintenance Due Date [...] season) 2023 12/06/2020, 05/10/2020, 04/12/2020 PHQ-2 (Physician [place]) 02/18/2024 DTaP, Tdap and Td Vaccines ( [...] Resu lt from Last 3 Months Insurance [facility] Care Teams Air Quality Specialist Relationship Specialty Start Date End Date Aguilar Boo MD [address] [place] [address] PCP - General INTERNAL MEDICINE 11/01/20
--- OUTSIDE RECORDS SUMMARY | 2024-08-17 16:08 | XMS_ITS | Clinical Summary ---
Author Organization [email or web address] Address [address] [place] [address] Care Team Providers Care Sat Act Instructor Name Role Phone Leticia Chang MD Unavailable [phone] Elliot Don MD Primary Care Provider [phone] Source Comments [facility],non-owned Affiliates and Associated Physician Practices is amultiple site organization consisting of ambulatory clinics and hospital sitesin [place], [place], [place] and [place]. This disclosure is being madepursuant to the Care Everywhere program and may not contain all information available regarding this patient. Last updated 17.[facility] Allergies No known active allergies Medications * [...] on file Legal Sex Female 12:54 PM DOOR OPENER Gender Identity Not on file Sexual Orientation Not on file Last Filed Vital Signs Vital Sign Reading Time Taken Comments Blood Pressure 98/62 06/05/2020 8:21 AM CDT Pulse 82 03/13/2015 9:29 AM DOOR OPENER Temperature 36.3 C (97.4 F) 06/05/2020 8:21 AM CDT Respiratory Rate 20 03/13/2015 9:29 AM DOOR OPENER Oxygen Saturation 99% 03/13/2015 9:29 AM DOOR OPENER Inhaled Oxygen Concentration - - Weight 88.5 [...] Thin Prep Vial Resulting Agency Comment [facility] [address] [place] [id number] [place] Peyton Anna MD LAB - SEROLOGY ORD ERABLES Final Result [facility] ACCOUNT BILL [id number] [place] [address] from Last 3 Months or Most Recently Relevant to Health Maintenance Insurance [employer] Care Teams Sat Act Instructor Relationship Specialty Start Date End Date Elliot Don MD [address] [place] [address] [address] [place] [address] PCP - General 12/28/20 Leticia Chang MD [facility] [address] [place] [address] Obstetrics and Gynecology 03/13/15
[2024-08-17 17:23] LABS: Beta HCG Quantitative 64276.00 mIU/ML
== END 2024-08-17 16:07 | disposition home or self-care (01) ==
LOC: ANHLAB 16:07
PROVIDERS: PCP Nurse Practitioner Family; Visit Provider Obstetrics & Gynecology
DX: O20.0 Threatened abortion (principal); Z3A.00 Weeks of gestation of pregnancy not specified
CPT/HCPCS: 36415; 84702

== ENCOUNTER 2024-08-19 10:10 | Outpatient (CLI) | payer OTHER, SELFPAY ==
--- OUTSIDE RECORDS SUMMARY | 2024-08-19 10:21 | XMS_ITS | Clinical Summary ---
Author Organization [facility] Address [address] [place] [address] Care Team Providers Care Batter Out Name Role Phone Leticia Chang MD Unavailable [phone] Elliot Don MD Primary Care Provider [phone] Source Comments [facility],non-owned Affiliates and Associated Physician Practices is amultiple site organization consisting of ambulatory clinics and hospital sitesin [place], [place], [place] and [place]. This disclosure is being madepursuant to the Care Everywhere program and may not contain all information available regarding this patient. Last updated 17.[facility] Allergies No known active allergies Medications * [...] on file Legal Sex Female 12:54 PM CONTROLS ENGINEER Gender Identity Not on file Sexual Orientation Not on file Last Filed Vital Signs Vital Sign Reading Time Taken Comments Blood Pressure 98/62 06/05/2020 8:21 AM CDT Pulse 82 03/13/2015 9:29 AM CONTROLS ENGINEER Temperature 36.3 C (97.4 F) 06/05/2020 8:21 AM CDT Respiratory Rate 20 03/13/2015 9:29 AM CONTROLS ENGINEER Oxygen Saturation 99% 03/13/2015 9:29 AM CONTROLS ENGINEER Inhaled Oxygen Concentration - - Weight 88.5 [...] Thin Prep Vial Resulting Agency Comment [facility] [address] [place] [id number] us Peyton Anna MD LAB - SEROLOGY ORD ERABLES Final Result [facility] ACCOUNT BILL [address] [place] [address] from Last 3 Months or Most Recently Relevant to Health Maintenance Insurance [employer] Care Teams Batter Out Relationship Specialty Start Date End Date lEliot Don MD [address] [place] [address] [address] [place] [address] PCP - General 12/28/20 Leticia Chang MD [facility] [place] [address] Obstetrics and Gynecology 03/13/15
--- OUTSIDE RECORDS SUMMARY | 2024-08-19 10:21 | XMS_ITS | Encounter Summary ---
Author Organization [facility] Address [address] [place] [address] Care Team Providers Care Nurse Aide Name Role Phone Aguilar Boo MD Primary Care Provider [phone] Encounter Details Date Type Department Care Team (Late st Contact Info) Description 04/10/2021 [employer]t Message Enc [facility] Medical Group Diabetes and Endocrinology - [place] [address] [facility] [place] [address] [place] [address] [place] [address] Thyroid US & status Social History Tobacco [...] CDT Gender Identity Female 01/30/2021 2:20 PM BLADE GRINDER Sexual Orientation Straight 01/30/2021 2: 20 PM BLADE GRINDER COVID-19 Exposure Response Date Recorded In the last 10 days, have yo u been in contact with someone who was confirmed or suspected to have Coronavirus/COVID-19? No / Unsure 04/11/2021 1:40 PM BLADE GRINDER documented as of this encounter Plan of Treatment Not on file documented as of this encounter Visit Diagnoses Not on filedocumented in this encounter Additional Health Concerns Infection Onset Date Last Indicated Resolved Time COVID-19 Rule Out 02/06/2022 02/06/2022 02/06/2022 11:51 AM BLADE GRINDER COVID-19 Confirmed 02/06/2022 02/06/2022 12:32 AM BLADE GRINDER Assessment Noted Time PHQ-9 Depression Total Score: 0 02/01/20 8:44 AM BLADE GRINDER documented as of this encounter Care Teams Nurse Aide Relationship Specialty Start Date End Date Aguilar Boo MD [address] [place] [address] PCP - General INTERNAL MEDICINE 11/01/20 documented as of this encounter
--- OUTSIDE RECORDS SUMMARY | 2024-08-19 10:21 | XMS_ITS | Encounter Summary ---
Author Organization [facility] Address [address] [place] [address] Care Team Providers Care Senior Javascript Engineer Name Role Phone Aguilar Boo MD Primary Care Provider [phone] Encounter Details Date Type Department Care Team (Late st Contact Info) Description 05/18/2021 [employer] Message Enc [facility] Medical Group Diabetes and Endocrinology - [place] [address] [facility] [place] [address] [place] [address] [place] [address] Thyroid test results Social History Tobacco Use [...] CDT Gender Identity Female 01/30/2021 2:20 PM DEMURRAGE AGENT Sexual Orientation Straight 01/30/2021 2: 20 PM DEMURRAGE AGENT COVID-19 Exposure Response Date Recorded In the [...] Rule Out 02/06/2022 02/06/2022 02/06/2022 11:51 AM DEMURRAGE AGENT COVID-19 Confirmed 02/06/2022 02/06/2022 12:32 AM DEMURRAGE AGENT Assessment Noted Time PHQ-9 Depression Total Score: 0 02/01/20 8:44 AM DEMURRAGE AGENT documented as of this encounter Care Teams Senior Javascript Engineer Relationship Specialty Start Date End Date Aguilar Boo MD [address] [place] [address] PCP - General INTERNAL MEDICINE 11/01/20 documented as of this encounter
--- OUTSIDE RECORDS SUMMARY | 2024-08-19 10:21 | XMS_ITS | Clinical Summary ---
Author Organization [facility] Address [facility] [place] [address] Care Team Providers Care Engineering Illustrator Name Role Phone Aguilar Boo MD Primary Care Provider [phone] Allergies No known active allergies Medications vitamin [...] 2.6%, Triploidy HR Supervision of normal first ([facility]) 06/07/2019 11/01/2020 Overview (11/01/2020): O+ [...] CDT Gender Identity Female 01/30/2021 2:20 PM ASSEMBLER CARDS AND ANNOUNCEMENTS Sexual Orientation Straight 01/30/2021 2: 20 PM ASSEMBLER CARDS AND ANNOUNCEMENTS Last Filed Vital Signs Vital Sign Reading Time Taken Comments Blood Pressure 102/70 03/05/2022 11:45 AM ASSEMBLER CARDS AND ANNOUNCEMENTS Pulse 67 03/05/2022 11:45 AM ASSEMBLER CARDS AND ANNOUNCEMENTS Temperature 36.7 C (98 F) 03/05/2022 11:45 AM ASSEMBLER CARDS AND ANNOUNCEMENTS Respiratory Rate 14 03/05/2022 11:45 AM ASSEMBLER CARDS AND ANNOUNCEMENTS Oxygen Saturation 98% 03/05/2022 11:45 AM ASSEMBLER CARDS AND ANNOUNCEMENTS Inhaled Oxygen Concentration - - Weight 88.2 kg (194 lb 6.4 oz) 03/05/2022 11:45 AM ASSEMBLER CARDS AND ANNOUNCEMENTS Height 162.6 cm (5' 4) 03/05/2022 11:45 AM ASSEMBLER CARDS AND ANNOUNCEMENTS Body Mass Index 33.37 03/05/2022 11:45 AM ASSEMBLER CARDS AND ANNOUNCEMENTS Plan of Treatment Health Maintenance Due Date [...] season) 2023 12/06/2020, 05/10/2020, 04/12/2020 PHQ-2 (Physician [place]) 02/18/2024 DTaP, Tdap and Td Vaccines ( [...] Resu lt from Last 3 Months Insurance [facility] Care Teams Engineering Illustrator Relationship Specialty Start Date End Date Aguilar Boo MD [address] [place] [address] PCP - General INTERNAL MEDICINE 11/01/20
[2024-08-19 11:49] LABS: Beta HCG Quantitative 59371.00 mIU/ML
== END 2024-08-19 10:11 | disposition home or self-care (01) ==
LOC: ANHLAB 10:12
PROVIDERS: PCP Nurse Practitioner Family; Visit Provider Obstetrics & Gynecology
DX: O20.0 Threatened abortion (principal); Z3A.00 Weeks of gestation of pregnancy not specified
CPT/HCPCS: 36415; 84702

== ENCOUNTER 2024-08-30 16:01 | Outpatient (CLI) | payer OTHER, SELFPAY ==
--- NOTE | ~2024-08-30 | US_ITS ---
EXAMINATION: US OB <=14 wk fetus w TV INDICATION: O20.0 - Threatened TECHNIQUE: Sonography of the pelvis was performed by transabdominal and transvaginal techniques. COMPARISON: 08/17/2024 RESULT: Uterus: 11.8 x 5.6 x 8.5 cm. Anteverted. Homogenous myometrium. Intrauterine gestational sac: Single present. Mean Sac Diameter: 3.12 cm, corresponding gestational age 8 week 2 days. Yolk sac: Not visualized. Embryo: Single present. [place] rump length: 0.46 cm, corresponding gestational age 6 weeks, 1 days. Gestational heart rate: Absent. Subgestational hematoma: 1.6 x 1.0 x 1.5 cm hypoechoic area adjacent to the gestational sac, likely representing residual subchorionic hemorrhage. . Right ovary: 3.5 x 2.3 x 2.5 cm. Vascular flow is present. No adnexal mass. Left ovary: 4.0 x 3.7 x 3.1 cm. Vascular flow is present. Likely involuting corpus luteal cyst. Pelvis free fluid: None. IMPRESSION: Sonographic findings suspicious for failure. No heart motion detected. No significant interval growth since the prior scan 13 days ago. Interval decreasing size of the subdural gestational hematoma. Correlate with history of vaginal blee ding. Reviewed, dictated and finalized at location K. IMPRESSION: Sonographic findings suspicious for failure. No heart motion de tected. No significant interval growth since the prior scan 13 days ago. Interval decreasing size of the subdural gestational hematoma. Correlate with h istory of vaginal bleeding.
--- OUTSIDE RECORDS SUMMARY | 2024-08-30 15:07 | XMS_ITS | Clinical Summary ---
Author Organization [facility] Address [address] [place] [address] Care Team Providers Care Astronautical Engineer Name Role Phone Aguilar Boo MD Primary Care Provider [phone] Allergies No known active allergies Medications vitamin [...] 2.6%, Triploidy HR Supervision of normal first ([facility]) 06/07/2019 11/01/2020 Overview (11/01/2020): O+ Neg/ Imm/ rpr-NR/ HIV-NR/ HBSag-NR 12.3/36.1, Plt 352 Encounters Date Type Department Care Team Description 08/17/2024 Scan HEALTH INFO SRVCS Scanned, Doc Med Group Pathology (SCAN); Ultrasound (SCAN) 07/06/2024 Scan HEALTH INFO SRVCS Scanned, Doc Med Group [...] CDT Gender Identity Female 01/30/2021 2:20 PM SMALL ARMS ARTILLERY REPAIRER Sexual Orientation Straight 01/30/2021 2: 20 PM SMALL ARMS ARTILLERY REPAIRER Last Filed Vital Signs Vital Sign Reading Time Taken Comments Blood Pressure 102/70 03/05/2022 11:45 AM SMALL ARMS ARTILLERY REPAIRER Pulse 67 03/05/2022 11:45 AM SMALL ARMS ARTILLERY REPAIRER Temperature 36.7 C (98 F) 03/05/2022 11:45 AM SMALL ARMS ARTILLERY REPAIRER Respiratory Rate 14 03/05/2022 11:45 AM SMALL ARMS ARTILLERY REPAIRER Oxygen Saturation 98% 03/05/2022 11:45 AM SMALL ARMS ARTILLERY REPAIRER Inhaled Oxygen Concentration - - Weight 88.2 kg (194 lb 6.4 oz) 03/05/2022 11:45 AM SMALL ARMS ARTILLERY REPAIRER Height 162.6 cm (5' 4) 03/05/2022 11:45 AM SMALL ARMS ARTILLERY REPAIRER Body Mass Index 33.37 03/05/2022 11:45 AM SMALL ARMS ARTILLERY REPAIRER Plan of Treatment Health Maintenance Due Date [...] Screening wi th HPV 05/24/2019 COVID-19 Vaccine ( - 2023-2 5 season) 2023 12/06/2020, 05/10/2020, 04/12/2020 PHQ-2 (Physician [place]) 02/18/2024 DTaP, Tdap and Td Vaccines ( [...] Procedure Name Priority Date/Time Associated Diagnosis Comments PATHOLOGY GENERIC (SCAN ORDER) 08/17/2024 PATHOLOGY GENERIC (SCAN ORDER) 08/17/2024 PATHOLOGY GENERIC (SCAN ORDER) 08/17/2024 ULTRASOUND GENERIC (SCAN ORDER) 08/17/2024 ULTRASOUND GENERIC (SCAN ORDER) 07/06/2024 from Last 3 Months Results * PATHOLOGY GENERIC (SCAN ORDER) (08/17/2024) Only the most recent of3 resultswithin the time period is included. 08/17/2024 us Doc Med Group Scanned SCANNING Final Resu lt * ULTRASOUND GENERIC (SCAN ORDER) (08/17/2024) Only the most recent of2 resultswithin the time period is included. Anatomical Region Laterality Modality Other 08/17/2024 us Doc Med Group Scanned SCANNING Final Resu lt from Last 3 Months Insurance [facility] Care Teams Astronautical Engineer Relationship Specialty Start Date End Date Aguilar Boo MD [address] [place] [address] PCP - General INTERNAL MEDICINE 11/01/20
--- OUTSIDE RECORDS SUMMARY | 2024-08-30 15:07 | XMS_ITS | Encounter Summary ---
Author Organization [facility] Address [address] [place] [address] Care Team Providers Care Senior Net Developer Architect Name Role Phone Aguilar Boo MD Primary Care Provider [phone] Encounter Details Date Type Department Care Team (Late st Contact Info) Description 04/10/2021 [employer] Message Enc [facility] Medical Group Diabetes and Endocrinology [place] [address] [facility] [place] [address] [place] [address] [place] [address] Thyroid US & status Social History Tobacco [...] CDT Gender Identity Female 01/30/2021 2:20 PM DIGITAL COMPUTER SYSTEMS ANALYST Sexual Orientation Straight 01/30/2021 2: 20 PM DIGITAL COMPUTER SYSTEMS ANALYST COVID-19 Exposure Response Date Recorded In the last 10 days, have yo u been in contact with someone who was confirmed or suspected to have Coronavirus/COVID-19? No / Unsure 04/11/2021 1:40 PM DIGITAL COMPUTER SYSTEMS ANALYST documented as of this encounter Plan of Treatment Not on file documented as of this encounter Visit Diagnoses Not on filedocumented in this encounter Additional Health Concerns Infection Onset Date Last Indicated Resolved Time COVID-19 Rule Out 02/06/2022 02/06/2022 02/06/2022 11:51 AM DIGITAL COMPUTER SYSTEMS ANALYST COVID-19 Confirmed 02/06/2022 02/06/2022 12:32 AM DIGITAL COMPUTER SYSTEMS ANALYST Assessment Noted Time PHQ-9 Depression Total Score: 0 02/01/20 8:44 AM DIGITAL COMPUTER SYSTEMS ANALYST documented as of this encounter Care Teams Senior Net Developer Architect Relationship Specialty Start Date End Date Aguilar Boo MD [address] [place] [address] PCP - General INTERNAL MEDICINE 11/01/20 documented as of this encounter
--- OUTSIDE RECORDS SUMMARY | 2024-08-30 15:07 | XMS_ITS | Encounter Summary ---
Author Organization [facility] Address [address] [place] [address] Care Team Providers Care Metal Fabrication Supervisor Name Role Phone Aguilar Boo MD Primary Care Provider [phone] Reason for Visit * Reason Comments Pathology (SCAN) Ultrasound (SCAN) Encounter Details Date Type Department Care Team ([facility] Contact Info) Description 08/17/2024 Scan HEALTH INFO SRVCS Scanned, Doc Med Group Pathology (SCAN); Ultrasound (SCAN) Social History Tobacco Use Types Packs/Day Years [...] CDT Gender Identity Female 01/30/2021 2:20 PM BREAKFAST MANAGER Sexual Orientation Straight 01/30/2021 2: 20 PM BREAKFAST MANAGER documented as of this encounter Plan of Treatment Not on file documented as of this encounter Procedures Procedure Name Priority Date/Time Associated Diagnosis Comments PATHOLOGY GENERIC (SCAN ORDER) 08/17/2024 PATHOLOGY GENERIC (SCAN ORDER) 08/17/2024 PATHOLOGY GENERIC (SCAN ORDER) 08/17/2024 ULTRASOUND GENERIC (SCAN ORDER) 08/17/2024 documented in this encounter Results * PATHOLOGY GENERIC (SCAN ORDER) (08/17/2024) 08/17/2024 us Doc Med Group Scanned SCANNING Final Resu lt * PATHOLOGY GENERIC (SCAN ORDER) (08/17/2024) 08/17/2024 us Doc Med Group Scanned SCANNING Final Resu lt * PATHOLOGY GENERIC (SCAN ORDER) (08/17/2024) 08/17/2024 us Doc Med Group Scanned SCANNING Final Resu lt * ULTRASOUND GENERIC (SCAN ORDER) (08/17/2024) Anatomical Region Laterality Modality Other 08/17/2024 us Doc Med Group Scanned SCANNING Final Resu lt documented in this encounter Visit Diagnoses Not on filedocumented in this encounter Additional Health Concerns Assessment Noted Time PHQ-9 Depression Total Score: 0 02/01/20 21 8:44 AM BREAKFAST MANAGER documented as of this encounter Care Teams Metal Fabrication Supervisor Relationship Specialty Start Date End Date Aguilar Boo MD [address] [place] [address] PCP - General INTERNAL MEDICINE 11/01/20 documented as of this encounter
--- OUTSIDE RECORDS SUMMARY | 2024-08-30 15:07 | XMS_ITS | Encounter Summary ---
Author Organization [facility] Address [address] [place] [address] Care Team Providers Care Actuarial Science Teacher Name Role Phone Aguilar Boo MD Primary Care Provider [phone] Encounter Details Date Type Department Care Team (Late st Contact Info) Description 05/18/2021 [employer] 1t Message Enc [facility] Medical Group Diabetes and Endocrinology [place] [address] [facility] [place] [address] [place] [address] [place] [address] Thyroid test results Social History Tobacco Use [...] CDT Gender Identity Female 01/30/2021 2:20 PM BOWLING ALLEY FLOORS INSTALLER Sexual Orientation Straight 01/30/2021 2: 20 PM BOWLING ALLEY FLOORS INSTALLER COVID-19 Exposure Response Date Recorded In the [...] Rule Out 02/06/2022 02/06/2022 02/06/2022 11:51 AM BOWLING ALLEY FLOORS INSTALLER COVID-19 Confirmed 02/06/2022 02/06/2022 12:32 AM BOWLING ALLEY FLOORS INSTALLER Assessment Noted Time PHQ-9 Depression Total Score: 0 02/01/20 8:44 AM BOWLING ALLEY FLOORS INSTALLER documented as of this encounter Care Teams Actuarial Science Teacher Relationship Specialty Start Date End Date Aguilar Boo MD [address] [place] [address] PCP - General INTERNAL MEDICINE 11/01/20 documented as of this encounter
--- OUTSIDE RECORDS SUMMARY | 2024-08-30 15:07 | XMS_ITS | Clinical Summary ---
Author Organization [facility] [employer] Address [address] [place] [address] Care Team Providers Care Bobtailer Name Role Phone Leticia Chnag MD Unavailable [phone] Elliot Don MD Primary Care Provider [phone] Source Comments [facility],non-owned Affiliates and Associated Physician Practices is amultiple site organization consisting of ambulatory clinics and hospital sitesin [place], [place], [place] and [place]. This disclosure is being madepursuant to the Care Everywhere program and may not contain all information available regarding this patient. Last updated 17.[facility] [employer] Allergies No known active allergies Medications * [...] on file Legal Sex Female 12:54 PM MOLDED GOODS INSPECTOR TRIMMER Gender Identity Not on file Sexual Orientation Not on file Last Filed Vital Signs Vital Sign Reading Time Taken Comments Blood Pressure 98/62 06/05/2020 8:21 AM CDT Pulse 82 03/13/2015 9:29 AM MOLDED GOODS INSPECTOR TRIMMER Temperature 36.3 C (97.4 F) 06/05/2020 8:21 AM CDT Respiratory Rate 20 03/13/2015 9:29 AM MOLDED GOODS INSPECTOR TRIMMER Oxygen Saturation 99% 03/13/2015 9:29 AM MOLDED GOODS INSPECTOR TRIMMER Inhaled Oxygen Concentration - - Weight 88.5 [...] of 3 - 19+ 3-dose series) 2008 HPV VACCINE (1 - 3-dose SCDM series) 2016 PAP with HPV 10/30/2020 10/31/2015, 10/31/2015 COVID-19 VACCINE (1 - 2023-2 5 season) 2023 DEPRESSION SCREENING 02/18/2024 INFLUENZA VACCINE (#1) 2024 ZOSTER VACCINE (1 of 2) 05/24/2039 [...] Thin Prep Vial Resulting Agency Comment [facility] [address] [place] [id number] [place] Peyton Anna MD LAB - SEROLOGY ORD ERABLES Final Result [facility] ACCOUNT BILL [id number] [place] [address] from Last 3 Months or Most Recently Relevant to Health Maintenance Insurance [employer] Care Teams Bobtailer Relationship Specialty Start Date End Date Elliot Don MD [address] [place] [address] [address] [place] [address] PCP - General 12/28/20 Leticia Chang MD [address] [place] [address] Obstetrics and Gynecology 03/13/15
--- OUTSIDE RECORDS SUMMARY | 2024-08-30 16:05 | XMS_ITS | Clinical Summary ---
Author Organization [facility] [employer] Address [address] [place] [address] Care Team Providers Care Client Support Associate Name Role Phone Leticia Chang MD Unavailable [phone] Elliot Don MD Primary Care Provider [phone] Source Comments [facility],non-owned Affiliates and Associated Physician Practices is amultiple site organization consisting of ambulatory clinics and hospital sitesin [place], [place], [place] and [place]. This disclosure is being madepursuant to the Care Everywhere program and may not contain all information available regarding this patient. Last updated 17.[facility] [employer] Allergies No known active allergies Medications * [...] on file Legal Sex Female 12:54 PM TRAIN PLANNER Gender Identity Not on file Sexual Orientation Not on file Last Filed Vital Signs Vital Sign Reading Time Taken Comments Blood Pressure 98/62 06/05/2020 8:21 AM CDT Pulse 82 03/13/2015 9:29 AM TRAIN PLANNER Temperature 36.3 C (97.4 F) 06/05/2020 8:21 AM CDT Respiratory Rate 20 03/13/2015 9:29 AM TRAIN PLANNER Oxygen Saturation 99% 03/13/2015 9:29 AM TRAIN PLANNER Inhaled Oxygen Concentration - - Weight 88.5 [...] Thin Prep Vial Resulting Agency Comment [facility] [address] [place] [id number] us Peyton Anna MD LAB - SEROLOGY ORD ERABLES Final Result [facility] ACCOUNT BILL [address] [place] [address] from Last 3 Months or Most Recently Relevant to Health Maintenance Insurance [employer] Care Teams Client Support Associate Relationship Specialty Start Date End Date Elliot Don MD [address] [place] [address] [address] [place] [address] PCP - General 12/28/20 Leticia Chang MD [address] [place] [address] Obstetrics and Gynecology 03/13/15
--- OUTSIDE RECORDS SUMMARY | 2024-08-30 16:05 | XMS_ITS | Encounter Summary ---
Author Organization [facility] Address [address] [place] [address] Care Team Providers Care Data Warehouse Analyst Name Role Phone Aguilar Boo MD Primary Care Provider [phone] Reason for Visit * Reason Comments Pathology (SCAN) Ultrasound (SCAN) Encounter Details Date Type Department Care Team ([facility] Contact Info) Description 08/17/2024 Scan HEALTH INFO [...] CDT Gender Identity Female 01/30/2021 2:20 PM END LATHE OPERATOR Sexual Orientation Straight 01/30/2021 2: 20 PM END LATHE OPERATOR documented as of this encounter Plan of [...] Total Score: 0 02/01/20 21 8:44 AM END LATHE OPERATOR documented as of this encounter Care Teams Data Warehouse Analyst Relationship Specialty Start Date End Date Aguilar Boo MD [address] [place] [address] PCP - General INTERNAL MEDICINE 11/01/20 documented as of this encounter
--- OUTSIDE RECORDS SUMMARY | 2024-08-30 16:05 | XMS_ITS | Encounter Summary ---
Author Organization [facility] Address [address] [place] [address] Care Team Providers Care Auto Service Writer Name Role Phone Aguilar Boo MD Primary Care Provider [phone] Encounter Details Date Type Department Care Team (Late st Contact Info) Description 05/18/2021 MyCValidust Message Enc [facility] Diabetes [place] [address] [facility] [address] [place] [address] [place] [address] [place] [address] Thyroid test results Social History Tobacco Use [...] CDT Gender Identity Female 01/30/2021 2:20 PM COVERER Sexual Orientation Straight 01/30/2021 2: 20 PM COVERER COVID-19 Exposure Response Date Recorded In the [...] Rule Out 02/06/2022 02/06/2022 02/06/2022 11:51 AM COVERER COVID-19 Confirmed 02/06/2022 02/06/2022 12:32 AM COVERER Assessment Noted Time PHQ-9 Depression Total Score: 0 02/01/20 8:44 AM COVERER documented as of this encounter Care Teams Auto Service Writer Relationship Specialty Start Date End Date Aguilar Boo MD [address] [place] [address] PCP - General INTERNAL MEDICINE 11/01/20 documented as of this encounter
--- OUTSIDE RECORDS SUMMARY | 2024-08-30 16:05 | XMS_ITS | Encounter Summary ---
Author Organization [facility] Address [address] [place] [address] Care Team Providers Care Welfare Administrator Name Role Phone Aguilar Boo MD Primary Care Provider [phone] Encounter Details Date Type Department Care Team (Late st Contact Info) Description 04/10/2021 Roadtripperst Message Enc [facility] Medical Group Diabetes and [place]ocrinology [place] [address] [facility] [place] [address] [place] [address] [place] [address] Thyroid US & status Social History Tobacco [...] CDT Gender Identity Female 01/30/2021 2:20 PM SEO EXPERT Sexual Orientation Straight 01/30/2021 2: 20 PM SEO EXPERT COVID-19 Exposure Response Date Recorded In the last 10 days, have yo u been in contact with someone who was confirmed or suspected to have Coronavirus/COVID-19? No / Unsure 04/11/2021 1:40 PM SEO EXPERT documented as of this encounter Plan of Treatment Not on file documented as of this encounter Visit Diagnoses Not on filedocumented in this encounter Additional Health Concerns Infection Onset Date Last Indicated Resolved Time COVID-19 Rule Out 02/06/2022 02/06/2022 02/06/2022 11:51 AM SEO EXPERT COVID-19 Confirmed 02/06/2022 02/06/2022 12:32 AM SEO EXPERT Assessment Noted Time PHQ-9 Depression Total Score: 0 02/01/20 8:44 AM SEO EXPERT documented as of this encounter Care Teams Welfare Administrator Relationship Specialty Start Date End Date Aguilar Boo MD [address] [place] [address] PCP - General INTERNAL MEDICINE 11/01/20 documented as of this encounter
--- OUTSIDE RECORDS SUMMARY | 2024-08-30 16:05 | XMS_ITS | Clinical Summary ---
Author Organization [facility] Address [address] [place] [address] Care Team Providers Care Data Steward Name Role Phone Aguilar Boo MD Primary Care Provider [phone] Allergies No known active allergies Medications vitamin [...] 2.6%, Triploidy HR Supervision of normal first ([facility]) 06/07/2019 11/01/2020 Overview (11/01/2020): O+ Neg/ Imm/ [...] CDT Gender Identity Female 01/30/2021 2:20 PM MINE DEPUTY Sexual Orientation Straight 01/30/2021 2: 20 PM MINE DEPUTY Last Filed Vital Signs Vital Sign Reading Time Taken Comments Blood Pressure 102/70 03/05/2022 11:45 AM MINE DEPUTY Pulse 67 03/05/2022 11:45 AM MINE DEPUTY Temperature 36.7 C (98 F) 03/05/2022 11:45 AM MINE DEPUTY Respiratory Rate 14 03/05/2022 11:45 AM MINE DEPUTY Oxygen Saturation 98% 03/05/2022 11:45 AM MINE DEPUTY Inhaled Oxygen Concentration - - Weight 88.2 kg (194 lb 6.4 oz) 03/05/2022 11:45 AM MINE DEPUTY Height 162.6 cm (5' 4) 03/05/2022 11:45 AM MINE DEPUTY Body Mass Index 33.37 03/05/2022 11:45 AM MINE DEPUTY Plan of Treatment Health Maintenance Due Date [...] season) 2023 12/06/2020, 05/10/2020, 04/12/2020 PHQ-2 (Physician [place]) 02/18/2024 DTaP, Tdap and Td Vaccines ( [...] Months Insurance [facility] Care Teams Data Steward Relationship Specialty Start Date End Date Aguilar Boo MD [address] [place] [address] PCP - General INTERNAL MEDICINE 11/01/20
[2024-08-30 17:29] LABS: Beta HCG Quantitative 23171.00 mIU/ML
== END 2024-08-30 16:02 | disposition home or self-care (01) ==
PROVIDERS: PCP Nurse Practitioner Family; Visit Provider Obstetrics & Gynecology
DX: O20.0 Threatened abortion (principal)
CPT/HCPCS: 36415; 76801; 76817; 84702

== ENCOUNTER 2024-08-31 09:12 | Day surgery (SDC) | payer OTHER, SELFPAY ==
--- NOTE | 2024-08-31 09:17 | PM.IMHP ---
H&P: HPI History of Present Illness Date/Time: 08/31/24 09:17 Chief Complaint: Miscarriage Narrative: 34 y/o with LMP 06/19/24, now with ultrasound exam showing CRL only 6 weeks size, with no detectable cardiac motion and no interval growth, in the setting of decreasing hcg levels. She has had no bleeding. We had discussed expectant vs surgical management, and she prefers the latter. Review of Systems Review of Systems: All systems reviewed & are unremarkable except as noted in HPI and below PMFSH Past Medical History Medical History Stomach ulcer H/O thyroid disease Arthritis GERD (gastroesophageal reflux disease) delivery delivered ANTONIA I (vulvar intraepithelial neoplasia I) Surgical History Surgical History Delivery by section Family History Family History Grandparent Colon cancer Diabetes mellitus Aortic stenosis Hypertension Heart disease Other Neurofibromatosis Grandparent , age 42 Colon cancer Grandparent Carcinoma of colon Mother Depression Father Depression Sibling Depression Sibling Depression Scanlon esophagus Social History Social History Smoking status: Never smoker Second hand tobacco smoke exposure: No Alcohol intake: never Drinks per week: 3 Substance use: never Substance use type: does not use Lack of Transportation: No Lack of Food: Never True Current Housing: I Have Housing Concerned About Future Housing: No Difficulty Paying Gas/Electric Bills: No Difficulty Paying for Meds: No Currently Unemployed: No Education: Master's Degree or Higher Difficulty w/ Childcare or Family Care: YES Living arrangements: with family Additional living arrangements comments: - tenisha - has 1 child (son) Occupation/Education: other Additional occupation/education comments: stay at home mother Gender identity (if verbalized by the patient): Female Spiritual care concerns: No Meds Home Medications and Allergies Home Medications ?Medication ?Instructions ?Recorded ?Confirmed ?Type vits no.124-ferrous fum 1 tablet PO DAILY 10/18/19 08/12/24 History 27 mg iron-folic acid 800 mcg tablet ( Vitamin) cholecalciferol (vitamin D3) 10 10 mcg PO DAILY 08/12/24 08/12/24 History mcg (400 unit) capsule (Vitamin D3) Allergies Allergy/AdvReac Type Severity Reaction Status Date / Time No Known Allergies Allergy Verified 08/12/24 13:09 Exam Const: Orientation/consciousness: patient oriented x3 Other: Well-developed, well-nourished female in no acute distress. Neck: Thyroid: thyroid normal Lymphatic: no lymphadenopathy noted (in neck, axilla or inguinal nodes) Resp: Effort & Inspection: normal respiratory effort Auscultation: clear to auscultation bilaterally Cardio: Rate: regular rate Rhythm: regular rhythm Heart sounds: S1 normal heart sound present and S2 normal heart sound present GI: Other: ABD: Soft, nontender, nondistended. No guarding or rebound tenderness. No hepatosplenomegaly. : General: Yes no CVA tenderness Other: Deferred to OR Back/Spine/Pelvis: Back: no CVA tenderness Skin: General skin exam: normal color and no rashes or lesions noted Neuro: General: patient oriented x3 Extrem: Other: Extremities: nontender with no edema Psych: Mental Status: mental status grossly normal Affect: normal affect Assessment and Plan Assessment and plan (1) Missed : Code(s): O02.1 - Missed Status: Acute Assessment and Plan: A: Missed SAB. P: She elects to have surgical management, as above. I have offered dilation and suction curettage. She understands risks of surgery to include risks of anesthesia, risks of pain, infection, bleeding, blood products, thromboembolic phenomena and damage to adjacent structures such as bowel, bladder, ureters, blood vessels and nerves. She understands all these risks and elects to proceed with surgery.
--- OUTSIDE RECORDS SUMMARY | 2024-08-31 09:26 | XMS_ITS | Clinical Summary ---
Author Organization [facility] [employer] Address [address] [place] [address] Care Team Providers Care Appliances Sample Maker Name Role Phone Leticia Chagn MD Unavailable [phone] Elliot Don MD Primary Care Provider [phone] Source Comments [facility],non-owned Affiliates and Associated Physician Practices is amultiple site organization consisting of ambulatory clinics and hospital sitesin [place], [place], [place]. This disclosure is being madepursuant to the Care Everywhere program and may not contain all information available regarding this patient. Last updated 17.[facility] [employer] Allergies No known active allergies Medications * [...] on file Legal Sex Female 12:54 PM BLOCK AND CASE MAKER Gender Identity Not on file Sexual Orientation Not on file Last Filed Vital Signs Vital Sign Reading Time Taken Comments Blood Pressure 98/62 06/05/2020 8:21 AM CDT Pulse 82 03/13/2015 9:29 AM BLOCK AND CASE MAKER Temperature 36.3 C (97.4 F) 06/05/2020 8:21 AM CDT Respiratory Rate 20 03/13/2015 9:29 AM BLOCK AND CASE MAKER Oxygen Saturation 99% 03/13/2015 9:29 AM BLOCK AND CASE MAKER Inhaled Oxygen Concentration - - Weight 88.5 [...] Thin Prep Vial Resulting Agency Comment [facility] [address] [place] [id number] us Peyton Anna MD LAB - SEROLOGY ORD ERABLES Final Result [facility] ACCOUNT BILL [address] [place] [address] from Last 3 Months or Most Recently Relevant to Health Maintenance Insurance [employer] Care Teams Appliances Sample Maker Relationship Specialty Start Date End Date Elliot Don MD [address] [place] [address] [address] [place] [address] PCP - General 12/28/20 Leticia Chang MD [address] [place] [address] Obstetrics and Gynecology 03/13/15
[2024-08-31 09:41] VITALS: BMI 32.9
--- NOTE | 2024-08-31 09:47 | PC.NURSE ---
Report to the Outpatient Waiting Room, entrance under the green pavilion located off [facility], at time __1315 on date _08/31/24 . Planned Procedure Time: _1515 .? Time changes happen often and if your time is changed the preop area will call you the afternoon before. - You and your visitor will be asked to self-screen and do not enter if you have any COVID symptoms. Please call surgeon if you need to reschedule. - A mask is optional within the hospital at this time. Patients may have clear liquids (water, carbonated beverages, clear teas, apple juice) until 3 hours prior to surgery with a maximum of 20 ounces. - No food from midnight until time of surgery and no smoking, or chewing tobacco (or any form of nicotine). No chewing gum, candy or mints. - Infants may have breast milk until 4 hours before surgery, formula 6 hours prior to surgery. - Children will be allowed to drink immediately following surgery.? If applicable, please bring a bottle or sippy cup to assist with drinking. Juice, water, soda, and popsicles are readily available.? For infants on formula, please bring formula the day of surgery.? Pacifiers are allowed. Take only the following medications with a SIP of water on the morning of surgery: ___N/A DO NOT STOP ANY OF YOUR OTHER PRESCRIPTION MEDICATIONS PRIOR TO SURGERY EXCEPT THE FOLLOWING Hold all vitamins and supplements for 3 days per anesthesiologist. Medications to discontinue per physician __N/A Date to take last dose Please no make-up, nail bhutanese, hairspray, perfume, deodorant, or body powder the day of surgery.? No jewelry (including any body piercings) or valuables the day of surgery, leave them at home.? Please take a shower or bath the night before, or the morning of, surgery with an antibacterial soap.? Wear comfortable, loose fitting clothing.? Children are encouraged to wear pajamas. - Jewelry must be removed prior to entering the operating room.? Rings and piercings that are not removed may be cut off. - The hospital will not accept responsibility for valuables.? - Please leave all valuables, including medications, at home the day of surgery. If you are going home after surgery, a licensed funeral car driver must drive you home.? - NO public transportation without another adult if you receive anesthesia. - We recommend that an adult stay with you for 24 hours following discharge. - We also recommend that you do not drive, make important decision, drink alcoholic beverages, or take any drugs that were not prescribed by your health care provider for at least 24 hours after your discharge time. For Pediatric surgeries, we recommend two adults accompany the child home. Follow any additional instructions given to you from your surgeon. Telephone instructions given to _Yokasta and asked if any additional questions and then verbalized understanding. Patient advised to call surgeon office or pre surgery nurse liaison [phone] if any additional questions.
[2024-08-31 13:00] VITALS: BP 112/68; PULSE 83; RESP 16; TEMP 37.1; O2SAT 100
[2024-08-31] MEDS: LACTATED RINGERS 1,000 ML 30 ML IV CONT (13:00)
[2024-08-31 13:04] VITALS: BMI 33.4
--- NOTE | 2024-08-31 13:04 | WPDHPUPDATE1 ---
History and Physical Update Update Date/Time: 08/31/24 13:04 History and Physical has been reviewed, including an updated exam of the patient. There are NO changes in the patient's condition. Risks, benefits, and alternatives have been discussed and questions answered. Patient agrees to proceed with procedure.
[2024-08-31] MEDS: MIDAZOLAM HCL (*CRX) 2 MG/2 ML VIAL 1 MG IV PUSH (13:25)
[2024-08-31] MEDS: ACETAMINOPHEN 500 MG TABLET 1000 MG PO (13:25)
--- NOTE | 2024-08-31 13:38 | P.PNAN_ITS ---
Anes - Initial Pre Proc Eval Procedure: Operation Date: 08/31/24 15:15 Proposed Procedures p Suction Dilatation and Curettage - Kartik Morse MD Date/Time: 08/31/24 13:38 Surgeon: Kartik Morse MD Pre Op Diagnosis: missed AB Patient Data Age: 34 Gender: F Height: 1.63 m Weight: 88.4 kg Last Vital Signs Temp 98.8 F 08/31/24 13:00 Pulse 83 08/31/24 13:00 Resp 16 08/31/24 13:00 BP 112/68 08/31/24 13:00 Pulse Ox 100 08/31/24 13:00 Allergies Allergy/AdvReac Type Severity Reaction Status Date / Time No Known Allergies Allergy Verified 08/31/24 12:59 Home Medications ?Medication ?Instructions ?Recorded ?Confirmed ?Type vits no.124-ferrous fum 1 tablet PO DAILY 10/18/19 08/31/24 History 27 mg iron-folic acid 800 mcg tablet ( Vitamin) cholecalciferol (vitamin D3) 10 10 mcg PO DAILY 08/12/24 08/31/24 History mcg (400 unit) capsule (Vitamin D3) Patient hx anesthesia problems: none Family hx anesthesia problems: none Results Review: All pre-operative results and documents have been reviewed as part of the pre- operative evaluation. [facility] Past Medical History Medical History Stomach ulcer H/O thyroid disease Arthritis GERD (gastroesophageal reflux disease) delivery delivered ANTONIA I (vulvar intraepithelial neoplasia I) Surgical History Surgical History Delivery by section Family History Family History Grandparent Colon cancer Diabetes mellitus Aortic stenosis Hypertension Heart disease Other Neurofibromatosis Grandparent , age 42 Colon cancer Grandparent Carcinoma of colon Mother Depression Father Depression Sibling Depression Sibling Depression Scanlon esophagus Social History Social History Smoking status: Never smoker Second hand tobacco smoke exposure: No Alcohol intake: never Substance use: never Substance use type: does not use Lack of Transportation: No Lack of Food: Never True Current Housing: I Have Housing Concerned About Future Housing: No Difficulty Paying Gas/Electric Bills: No Difficulty Paying for Meds: No Currently Unemployed: No Education: Master's Degree or Higher Difficulty w/ Childcare or Family Care: YES Living arrangements: with family Additional living arrangements comments: - tenisha - has 1 child (son) Occupation/Education: other Additional occupation/education comments: stay at home mother Gender identity (if verbalized by the patient): Female Spiritual care concerns: No Anes - Eval Final PreProcedure Day of Procedure 08/31/24 13:38 Patient weight: normal (BMI 33. ) Lungs: normal air movement Airway: Mallampati scale class II Neurological: alert and oriented Last oral intake: >/= 8 hours ASA classification: II Emergent: no Anesthetic plan: proceed Anesthesia type and monitoring: general GIVS and standard monitoring Results Review: All pre-operative results and documents have been reviewed as part of the pre- operative evaluation. Informed Consent: The patient's anesthetic plan and its attendant risks and benefits were discussed with the patient/family/POA. Questions were solicited and answers provided to the satisfaction of the patient/family/POA.
[2024-08-31] MEDS: LIDOCAINE 1% LOCAL INJ 10 ML VIAL INFILTRATE (13:50)
--- NOTE | 2024-08-31 14:08 | S_PTH ---
PATIENT: Yokasta Stringer LOC: [facility] U#:[id number] AGE/SX: 34/F ROOM: RE08/31/[address]: Kartik Morse MD : 1990 BED: DIS: 08/31/2024 SPEC #: [id number] RECD: 09/01/24 10:52 STATUS: ADILENE REQ #: [id number] RAIMUNDO: 08/31/24 14:[address]: Kartik Morse DEPT: [facility] Surgical RECD BY: Colette De La Rosa ENTERED: 09/01/24 10:52 SP TYPE: Surgical OTHR DR: Sabi Barry APRN Tissues: A - Uterine Contents Procedures: Hematoxylin and Eosin Stain Gross and Microscopic Level 4
--- NOTE | 2024-08-31 14:15 | W.PM.PROC2 ---
Procedure Note - Detailed Date of Procedure 08/31/24 Pre-op Diagnosis Missed SAB Post-op Diagnosis Same Procedure Performed Dilation and suction curettage Surgeon Kartik Morse MD Anesthesia MAC and Local (1% lidocaine) Findings POC noted Description of Procedure The patient was taken to the operating room where she was prepared and draped in the usual sterile fashion in the dorsal lithotomy position. A sterile speculum was placed into the vagina. The anterior lip of the cervix was grasped with a single-tooth tenaculum. Ten mL of 1% lidocaine was administered in a paracervical block. The cervix was gently dilated using Hegar dilators until an 8mm dilator could be passed. The 8mm curved tip suction curette was advanced. Suction curettage was performed and products of conception were aspirated. Sharp curettage was then performed until a good uterine cry was noted. A final pass with the suction curette was made. The tenaculum was removed. Hemostasis was excellent. Sponge, lap, needle and instrument counts were correct. The patient was taken to the recovery room in stable condition. I was present and scrubbed for the entire procedure. Implants None Estimated Blood Loss 150 Drains No Packing No Pathology Yes (Endometrial curettings) Complications None Condition Stable Disposition PACU [facility] Billing Surgery - Charge Forward: Surgery Billing
[2024-08-31 14:18] VITALS: BP 100/53; PULSE 80; RESP 16; O2SAT 99
[2024-08-31 14:48] VITALS: BP 86/48; PULSE 69; O2SAT 98
[2024-08-31 15:17] VITALS: BP 107/69; PULSE 82
== END 2024-08-31 15:18 | disposition home or self-care (01) ==
PROVIDERS: PCP Nurse Practitioner Family; Visit Provider Obstetrics & Gynecology
PROC: (CPT 59820; principal; 2024-08-31 15:15)
DX: O02.1 Missed abortion (principal)
CPT/HCPCS: 59820; 88305; A9270; J1885; J2003; J2210; J2250; J2405; J2704; J3010; J7120

== ENCOUNTER 2024-12-30 17:24 | Outpatient (CLI) | payer OTHER, SELFPAY ==
--- OUTSIDE RECORDS SUMMARY | 2024-12-30 17:27 | XMS_ITS | Encounter Summary ---
Author Organization [facility] Address [address] [place] [id number] Care Team Providers Care Metal Leaf Layer Name Role Phone Aguilar Boo MD Primary Care Provider [phone] Encounter Details Date Type Department Care Team (Late st Contact Info) Description 04/10/2021 Target Softwaret Message Enc [facility] [place] [place] [address] [facility] [place] [address] [place] [address] [place] [address] Thyroid US & status Social History Tobacco [...] CDT Gender Identity Female 01/30/2021 2:20 PM SWITCHBOARD OPERATOR RECEPTIONIST Sexual Orientation Straight 01/30/2021 2: 20 PM SWITCHBOARD OPERATOR RECEPTIONIST COVID-19 Exposure Response Date Recorded In the last 10 days, have yo u been in contact with someone who was confirmed or suspected to have Coronavirus/COVID-19? No / Unsure 04/11/2021 1:40 PM SWITCHBOARD OPERATOR RECEPTIONIST documented as of this encounter Plan of Treatment Not on file documented as of this encounter Visit Diagnoses Not on filedocumented in this encounter Additional Health Concerns Infection Onset Date Last Indicated Resolved Time COVID-19 Rule Out 02/06/2022 02/06/2022 02/06/2022 11:51 AM SWITCHBOARD OPERATOR RECEPTIONIST COVID-19 Confirmed 02/06/2022 02/06/2022 12:32 AM SWITCHBOARD OPERATOR RECEPTIONIST Assessment Noted Time PHQ-9 Depression Total Score: 0 02/01/20 8:44 AM SWITCHBOARD OPERATOR RECEPTIONIST documented as of this encounter Care Teams Metal Leaf Layer Relationship Specialty Start Date End Date Aguilar Boo MD [address] [place] [id number] PCP - General INTERNAL MEDICINE 11/01/20 documented as of this encounter
--- OUTSIDE RECORDS SUMMARY | 2024-12-30 17:27 | XMS_ITS | Clinical Summary ---
Author Organization [facility] Address [facility] [place] [address] Care Team Providers Care Payroll Administrative Assistant Name Role Phone Aguilar Boo MD Primary Care Provider [phone] Allergies No known active allergies Medications vitamin [...] Triploidy HR Supervision of normal first 06/07/2019 11/01/2020 Overview (11/01/2020): O+ Neg/ Imm/ rpr-NR/ HIV-NR/ HBSag-NR HH 12.3/36.1, Plt 352 Immunizations Immunization Administration Dates Next Due Flucelvax [...] CDT Gender Identity Female 01/30/2021 2:20 PM POLICY SERVICES REPRESENTATIVE Sexual Orientation Straight 01/30/2021 2: 20 PM POLICY SERVICES REPRESENTATIVE Last Filed Vital Signs Vital Sign Reading Time Taken Comments Blood Pressure 102/70 03/05/2022 11:45 AM POLICY SERVICES REPRESENTATIVE Pulse 67 03/05/2022 11:45 AM POLICY SERVICES REPRESENTATIVE Temperature 36.7 C (98 F) 03/05/2022 11:45 AM POLICY SERVICES REPRESENTATIVE Respiratory Rate 14 03/05/2022 11:45 AM POLICY SERVICES REPRESENTATIVE Oxygen Saturation 98% 03/05/2022 11:45 AM POLICY SERVICES REPRESENTATIVE Inhaled Oxygen Concentration - - Weight 88.2 kg (194 lb 6.4 oz) 03/05/2022 11:45 AM POLICY SERVICES REPRESENTATIVE Height 162.6 cm (5' 4) 03/05/2022 11:45 AM POLICY SERVICES REPRESENTATIVE Body Mass Index 33.37 03/05/2022 11:45 AM POLICY SERVICES REPRESENTATIVE Plan of Treatment Health Maintenance Due Date Last Done Comments Cervical Cancer Screening Pap Smear (Age 30 to 64) Every 3 Years 1989 Annual Physical 1992 Hepatitis C 05/24/2007 Hepatitis B Vaccines (1 of 3 - 19+ 3-dose series) 2008 HPV Vaccines (1 - 3-dose SCDM series) 2016 Cervical Cancer Screening Pap with HPV Testing (Age 30 to 64) Every 5 Years 05/24/2019 Cervical Cancer Screening with HPV 05/24/2019 PHQ-2 (Physician [place]) 02/18/2024 COVID-19 Vaccine (2024- season) 2024 12/06/2020, 05/10/2020, 04/12/2020 Influenza Adult (#1) 2024 11/27/2021, 11/21/2020, 11/13/2019, Additional history exists DTaP, Tdap and Td Vaccines (3 - Td or Tdap) 10/31/2031 10/30/2021, 09/30/2019 Hepatitis A Vaccines Aged Out No long er eligible based [...] 49 Years) Aged Out No longer eligible based on patient's age to complete this topic RSV Immunizations Under 20 Months Aged Out No longer eligible based on patient's age to complete this topic Insurance Care Teams Payroll Administrative Assistant Relationship Specialty Start Date End Date Aguilar Boo MD [address] [place] [id number] PCP - General INTERNAL MEDICINE 11/01/20
--- OUTSIDE RECORDS SUMMARY | 2024-12-30 17:27 | XMS_ITS | Encounter Summary ---
Author Organization [facility] Address [address] [place] [address] Care Team Providers Care Edge Dyer Name Role Phone Aguilar Boo MD Primary Care Provider [phone] Encounter Details Date Type Department Care Team (Late st Contact Info) Description 05/18/2021 MyCOvelint Message Enc [facility] Diabetes [place] Endocrinology [place] [address] [facility] [place] [place] [address] [place] [address] [place] [address] Thyroid test results Social History Tobacco Use [...] CDT Gender Identity Female 01/30/2021 2:20 PM LEATHER STAMPER Sexual Orientation Straight 01/30/2021 2: 20 PM LEATHER STAMPER COVID-19 Exposure Response Date Recorded In the [...] Rule Out 02/06/2022 02/06/2022 02/06/2022 11:51 AM LEATHER STAMPER COVID-19 Confirmed 02/06/2022 02/06/2022 12:32 AM LEATHER STAMPER Assessment Noted Time PHQ-9 Depression Total Score: 0 02/01/20 8:44 AM LEATHER STAMPER documented as of this encounter Care Teams Edge Dyer Relationship Specialty Start Date End Date Aguilar Boo MD [address] [place] [id number] PCP - General INTERNAL MEDICINE 11/01/20 documented as of this encounter
== END 2024-12-30 17:25 | disposition home or self-care (01) ==
PROVIDERS: PCP Internal Medicine; Visit Provider Obstetrics & Gynecology
DX: Z34.90 Encounter for supervision of normal pregnancy, unspecified, unspecified trimester (principal); Z3A.00 Weeks of gestation of pregnancy not specified
CPT/HCPCS: 36415; 84144; 84702